=== PATIENT | male | born 1960 | race Caucasian/White ===

== ENCOUNTER 2020-02-26 07:30 | Inpatient (IN) | payer BC ==
[2020-02-26] MEDS ORDERED: Acetaminophen 500 MG Tab PO ONE (08:05)
[2020-02-26] MEDS ORDERED: Dextrose 5%-Lactated Ringers 1,000 ML IV SCH (08:30)
[2020-02-26] MEDS ORDERED: ceFAZolin 2 GM in Premix Bag 1 BAG IV ONE (08:50)
[2020-02-26] MEDS ORDERED: Bupivacaine 0.5% 50 ML MDV ONE (09:28)
[2020-02-26] MEDS ORDERED: Meropenem 500 MG SDV ONE ×2 (09:28→11:14)
[2020-02-26] MEDS ORDERED: Lidocaine 1% with EPINEPHrine 1:100,000 50 ML MDV ONE (09:28)
[2020-02-26] MEDS ORDERED: Glycopyrrolate 0.2 MG/ML 5 ML MDV ONE (09:35)
[2020-02-26] MEDS ORDERED: Ondansetron 4 MG/2 ML SDV ONE (09:35)
[2020-02-26] MEDS ORDERED: Neostigmine Methylsulfate 1 MG/ML 5 ML Syringe ONE (09:35)
[2020-02-26] MEDS ORDERED: Rocuronium 50 MG/5 ML Vial ONE ×2 (09:35→12:32)
[2020-02-26] MEDS ORDERED: Succinylcholine 200 MG/10 ML MDV ONE (09:35)
[2020-02-26] MEDS ORDERED: Dexamethasone 4 MG/ML SDV ONE (09:35)
[2020-02-26] MEDS ORDERED: Propofol 200 MG/20 ML SDV ONE ×2 (09:35→13:29)
[2020-02-26] MEDS ORDERED: fentaNYL 250 MCG/5 ML SDV ONE (09:35)
[2020-02-26] MEDS ORDERED: Ketamine 500 MG/5 ML MDV IV SCH (09:45)
[2020-02-26] MEDS ORDERED: Ketamine 50 MG in Sodium Chloride 0.9% 49.5 ML IV SCH (09:45)
--- NOTE | 2020-02-26 10:00 | PCM.HP.2 ---
H&P History of Present Illness - General Date of Service: 02/26/20 Admit Problem/Dx: Recurrent Incisional Hernia with Mesh Source of Information: Patient History Limitations: Reports: No Limitations - History of Present Illness Initial Comments - Free Text/Narative: Mason reports he has had a hernia for about 1 1/2 months and he is requesting to have it surgically repaired. Associated Symptoms: Reports: No Other Symptoms - Related Data Allergies/Adverse Reactions: Allergies Allergy/AdvReac Type Severity Reaction Status Date / Time latex Allergy Chest Pain Verified 02/26/20 08:13 levofloxacin Allergy Other Verified 02/25/20 09:22 methotrexate Allergy Irritabilit Verified 02/26/20 08:13 y Home Medications: Home Meds Albuterol Sulfate [Proair Hfa] 1 - 2 puff IH Q4H PRN 02/25/20 [History] Calcium Citrate 200 mg PO DAILY 02/25/20 [History] Cyanocobalamin (Vitamin B-12) [Vitamin B-12] 1,000 mcg PO DAILY 02/25/20 [History] Fluticasone Propion/Salmeterol [Fluticasone-Salmeterol 250-50] 1 puff IH BID 02/25/20 [History] Multivitamin with Minerals [Multiple Vitamin] 1 tab PO DAILY 02/25/20 [History] Vitamin B Complex [B Complex] 1 tab PO DAILY 02/25/20 [History] lisinopriL [Lisinopril] 10 mg PO DAILY 02/25/20 [History] Past Medical History Cardiovascular History: Reports: Hypertension Respiratory History: Reports: COPD Gastrointestinal History: Reports: None Musculoskeletal History: Reports: Arthritis Endocrine/Metabolic History: Reports: Obesity/BMI 30+ Hematologic History: Reports: Iron Deficiency Dermatologic History: Reports: Psoriasis - Past Surgical History Cardiovascular Surgical History: Reports: None Respiratory Surgical History: Reports: None GI Surgical History: Reports: Bariatric Procedure, Cholecystectomy, Colonoscopy, Hernia, Abdominal Endocrine Surgical History: Reports: None Musculoskeletal Surgical History: Reports: Carpal Tunnel, Shoulder Surgery Social & Family History - Family History Family Medical History: Noncontributory - Tobacco Use Smoking Status *Q: Former Smoker Used Tobacco, but Quit: Yes Month/Year Tobacco Last Used: 2009 - Caffeine Use Caffeine Use: Reports: Coffee - Alcohol Use Days Per Week of Alcohol Use: 2 Number of Drinks Per Day: 6 Total Drinks Per Week: 12 Date of Last Drink: 02/24/20 - Recreational Drug Use Recreational Drug Use: No H&P Review of Systems - Review of Systems: Review Of Systems: See Below General: Reports: No Symptoms, Other (wears corrective lens for near and far sightedness) HEENT: Reports: No Symptoms Pulmonary: Reports: Shortness of Breath, Wheezing (COPD), Other (Asthma Sleep Apnea) Cardiovascular: Reports: No Symptoms Gastrointestinal: Reports: No Symptoms Genitourinary: Reports: No Symptoms Musculoskeletal: Reports: No Symptoms Skin: Reports: Other (psoriasis outbreak on right shoulder and left leg ) Psychiatric: Reports: No Symptoms Neurological: Reports: No Symptoms Hematologic/Lymphatic: Reports: Anemia Exam - Exam Exam: See Below - Vital Signs Vital Signs: Last Vital Signs Temp 97.9 F 02/26/20 08:06 Pulse 85 02/26/20 08:06 Resp 16 02/26/20 08:06 BP 145/84 H 02/26/20 08:06 Pulse Ox 100 02/26/20 08:06 Weight: 225 lb - Exam Quality Assessment: DVT Prophylaxis General: Alert, Oriented, Cooperative, Mild Distress HEENT: PERRLA, Conjunctiva Clear Neck: Supple, Trachea Midline Lungs: Decreased Breath Sounds, Rhonchi, Wheezing Cardiovascular: Regular Rate, Regular Rhythm GI/Abdominal Exam: Other (incisional hernia) (Male) Exam: Deferred Rectal (Males) Exam: Deferred Back Exam: Normal Inspection, Full Range of Motion Extremities: Normal Inspection, Normal Range of Motion, No Pedal Edema Skin: Other (psoriasis rash on right shoulder and left leg ) Neurological: Cranial Nerves Intact, Reflexes Equal Bilateral Neuro Extensive - Mental Status: Alert, Oriented x3, Normal Mood/Affect Neuro Extensive - Motor, Sensory, Reflexes: CN II-XII Intact Psychiatric: Alert, Normal Affect, Normal Mood Sepsis Event Note - Focused Exam Vital Signs: Vital Signs Temp Pulse Resp BP Pulse Ox 02/26/20 08:06 97.9 F 85 16 145/84 H 100 Problem List Initiated/Reviewed/Updated: Yes Orders Last 24hrs: Active Orders 24 hr Category Date Time Status Dextrose 5%-Lactated Ringers 1,000 ml Med 02/26/20 08:30 Active IV ASDIRECTED Ketamine [Ketalar] Med 02/26/20 09:45 Active 34 mg IV ASDIRECTED Ketamine [Ketalar] 50 mg Med 02/26/20 09:45 Active Sodium Chloride 0.9% [Normal Saline] 49.5 ml IV ASDIRECTED Ropivacaine [Naropin 0.5%] 51 ml Med 02/26/20 09:45 Active dexAMETHasone [Dexamethasone] 8 mg EPINEPHrine [Adrenalin] 0.4 mg Sodium Chloride 0.9% [Normal Saline] 26.6 ml NERVRT ASDIRECTED SCD [Sequential Compression Device] [OM.PC] Routine Oth 02/26/20 08:05 Ordered Medication Orders Ropivacaine 51 ml/Dexamethasone 8 mg/Epinephrine HCl 0.4 mg/ Sodium Chloride 26.6 ml 0 ml NERVRT ASDIRECTED BLAKE Dextrose/Lactated Ringer's (Dextrose 5%-Lactated Ringers) 1,000 mls @ 100 mls/hr IV ASDIRECTED [facility] Last Admin: 02/26/20 08:18 Dose: 100 mls/hr Documented by: RODOLFO Ketamine HCl 50 mg/ Sodium (Chloride) 50 mls @ 20.4 mls/hr IV ASDIRECTED [facility] Ketamine HCl (Ketalar) 34 mg IV ASDIRECTED [facility] Assessment/Plan Comment:: Open Revision of Recurrent Incisional Hernia with Mesh. Plan: Cleared for General Anesthesia After preoperative evaluation and discussion of possible risks and complications patient wishes to proceed with surgical procedure. Martine Snell 02/26/2020 - Mortality Measure Prognosis:: Good
[2020-02-26] MEDS ORDERED: Ketorolac 60 MG/2 ML SDV ONE (13:29)
[2020-02-26] MEDS ORDERED: fentaNYL 100 MCG/2 ML SDV ONE (13:33)
[2020-02-26] MEDS ORDERED: diphenhydrAMINE 25 MG Cap PO PRN (13:41)
[2020-02-26] MEDS ORDERED: Ondansetron 4 MG/2 ML SDV IVPUSH PRN ×2 (13:41→16:00)
[2020-02-26] MEDS ORDERED: Naloxone 0.4 MG/ML SDV IVPUSH PRN (13:41)
[2020-02-26] MEDS ORDERED: diphenhydrAMINE 50 MG/ML SDV IVPUSH PRN (13:41)
[2020-02-26] MEDS ORDERED: hydrOXYzine HCL 100 MG/2 ML SDV IM ONE (13:44)
[2020-02-26] MEDS ORDERED: fentaNYL 100 MCG/2 ML SDV IVPUSH ONE (13:45)
[2020-02-26] MEDS: HYDROmorphone/Normal Saline 15 MG/30 ML PCA IV PRN (13:52)
[2020-02-26] MEDS ORDERED: hydrOXYzine HCL 100 MG/2 ML SDV IM PRN (16:00)
[2020-02-26] MEDS ORDERED: Naloxone 0.4 MG/ML SDV IV PRN (16:00)
[2020-02-26] MEDS ORDERED: Albuterol/Ipratropium 3.0-0.5 MG/3 ML Neb Soln INH PRN (16:00)
[2020-02-26] MEDS: MVI, Adult with Vitamin K 10 ML, Chromium/Copper/Mang/Selen/Zn 1 ML in Dextrose 5%-Lact... IV SCH ×3 (16:53)
[2020-02-26] MEDS: Cyclobenzaprine 10 MG Tab PO SCH ×2 (16:54→21:50)
[2020-02-26] MEDS: Acetaminophen 500 MG Tab PO SCH ×2 (16:54→21:48)
[2020-02-26] MEDS: ceFAZolin 2 GM in Premix Bag 1 BAG IV SCH (16:59)
[2020-02-26] MEDS: Albuterol/Ipratropium 3.0-0.5 MG/3 ML Neb Soln INH SCH (21:44)
[2020-02-26] MEDS: Fluticasone-Salmeterol 113-14 MCG Powder Inhalant INH SCH (21:49)
[2020-02-26] MEDS: Celecoxib 200 MG Cap PO SCH (21:49)
[2020-02-26] MEDS: Dextrose 5%-Lactated Ringers 1,000 ML IV SCH (23:41)
[2020-02-27] MEDS: ceFAZolin 2 GM in Premix Bag 1 BAG IV SCH ×3 (02:29→18:02)
[2020-02-27] MEDS: Cyclobenzaprine 10 MG Tab PO SCH ×4 (04:39→21:40)
[2020-02-27] MEDS: Acetaminophen 500 MG Tab PO SCH ×4 (04:39→21:40)
[2020-02-27] MEDS: Dextrose 5%-Lactated Ringers 1,000 ML IV SCH (05:02)
[2020-02-27] MEDS: Albuterol/Ipratropium 3.0-0.5 MG/3 ML Neb Soln INH SCH ×4 (07:50→20:37)
[2020-02-27] MEDS: Fluticasone-Salmeterol 113-14 MCG Powder Inhalant INH SCH ×3 (07:51→20:37)
[2020-02-27] MEDS ORDERED: Dextrose 5%-Lactated Ringers 1,000 ML IV SCH (08:00)
[2020-02-27] MEDS: Celecoxib 200 MG Cap PO SCH ×2 (08:55→20:37)
[2020-02-27] MEDS: Lisinopril 10 MG Tab PO SCH (08:55)
--- NOTE | 2020-02-27 09:23 | PN ---
DATE OF SERVICE: 02/27/2020 SUBJECTIVE: Mason is postoperative day #1. His pain has been controlled with the SHAVING MACHINE OPERATOR. He has had sips of clear liquids. He is up ambulating. He has no other questions or concerns. OBJECTIVE: GENERAL: Mason Ivey is a pleasant 59-year-old male. He is alert and orientated, sitting up in the chair. VITAL SIGNS: TPR at 0700; 96.9, 81, 16. Blood pressure 110/65. HEENT: Negative. NECK: Supple. HEART: Regular rate and rhythm. LUNGS: Decreased breath sounds. Occasional wheezing. His lungs sound about the same as they did preoperatively. ABDOMEN: Dressing dry and intact. Abdominal binder is on. EXTREMITIES: Without peripheral edema. ASSESSMENT: Exploratory laparotomy with lysis of extensive adhesions: 1. Repair of recurrent incarcerated incisional hernia with mesh. 2. Excision of peritoneal nodule. 3. Placement of Vicryl mesh. POSTOPERATIVE DIAGNOSES: 1. Recurrent incarcerated incisional hernia. 2. Large peritoneal implant abdominal wall, 15 cm. 3. Extensive intraabdominal adhesions. Date of surgery: 02/26/2020. Surgeon: Cornel Dyer MD. PLAN: 1. Decrease IV to 100 mL per hour. 2. Discontinue Rodrigues. 3. Colace 100 mg p.o. scheduled b.i.d. 4. Dulcolax 10 mg p.o. b.i.d. scheduled, may discontinue when patient has a bowel movement. 5. The patient will be getting iron IV infusions today, which are previously ordered for ferritin of 9. 6. Continue SHAVING MACHINE OPERATOR for adequate pain control. 7. Encouraged use of incentive spirometer 10 times every hour while awake. 8. We will evaluate p.r.n. or in a.m. Martine Herrera PA-C /[id number]
[2020-02-27] MEDS: Docusate Sodium 100 MG Cap PO SCH ×2 (09:41→20:37)
[2020-02-27] MEDS: Bisacodyl 5 MG Tab PO SCH ×2 (09:41→20:37)
[2020-02-27] MEDS: Sodium Ferric Gluconate Cmplex 250 MG in Sodium Chloride 0.9% 100 ML IV SCH (10:47)
[2020-02-27] MEDS: MVI, Adult with Vitamin K 10 ML, Chromium/Copper/Mang/Selen/Zn 1 ML in Dextrose 5%-Lact... IV SCH ×3 (18:02)
[2020-02-28] MEDS: HYDROmorphone/Normal Saline 15 MG/30 ML PCA IV PRN (03:51)
[2020-02-28] MEDS: Cyclobenzaprine 10 MG Tab PO SCH ×5 (03:52→23:00)
[2020-02-28] MEDS: Acetaminophen 500 MG Tab PO SCH ×5 (03:52→23:01)
[2020-02-28] MEDS: Albuterol/Ipratropium 3.0-0.5 MG/3 ML Neb Soln INH SCH ×4 (07:12→20:52)
[2020-02-28] MEDS: Fluticasone-Salmeterol 113-14 MCG Powder Inhalant INH SCH ×2 (07:21→20:52)
[2020-02-28] MEDS: Celecoxib 200 MG Cap PO SCH ×2 (08:56→20:52)
[2020-02-28] MEDS: Docusate Sodium 100 MG Cap PO SCH ×2 (08:57→20:52)
[2020-02-28] MEDS: Bisacodyl 5 MG Tab PO SCH ×2 (08:57→20:52)
--- NOTE | 2020-02-28 09:23 | PN ---
DATE OF SERVICE: 02/28/2020 SUBJECTIVE: Mason states his pain is controlled. He has been up ambulating. Vital signs stable, afebrile. Oral intake 1280 and urine output 700. REVIEW OF SYSTEMS: Remainder of review of systems negative for any pertinent positives and negatives. OBJECTIVE: GENERAL: Mason Ivey is a 59-year-old male. VITAL SIGNS: TPR at 0703, 95.3, 87, 16, blood pressure 92/52. HEENT: Negative. NECK: Supple. HEART: Regular rate and rhythm. LUNGS: Clear. Much improved. ABDOMEN: Dressing dry and intact. Abdominal binder is on. EXTREMITIES: Without peripheral edema. ASSESSMENT: Exploratory laparotomy with lysis of extensive adhesions. 1. Repair of recurrent incarcerated incisional hernia with mesh. 2. Excision of peritoneal nodule. 3. Placement of Vicryl mesh. POSTOPERATIVE DIAGNOSES: 1. Recurrent incarcerated incisional hernia. 2. Large peritoneal implant, abdominal wall, 15 cm. 3. Extensive intra-abdominal adhesions. Date of surgery: 02/26/2020. Surgeon: Cornel Dyer MD. PLAN: 1. Discontinue ENGINEERING MATHEMATICIAN. Continuous pulse ox. 2. Oxycodone 5 mg every 4 hours p.r.n. pain. 3. Full liquid diet. 4. Advance diet as tolerated. 5. May shower. 6. Continue use of incentive spirometer and ambulation. 7. Plan discharge in a.m. Martine Herrera PA-C /[id number]
[2020-02-28] MEDS: Sodium Ferric Gluconate Cmplex 250 MG in Sodium Chloride 0.9% 100 ML IV SCH (10:06)
[2020-02-28] MEDS: oxyCODONE 5 MG Tab PO PRN ×4 (10:13→23:52)
[2020-02-29] MEDS: Acetaminophen 500 MG Tab PO SCH (03:43)
[2020-02-29] MEDS: Cyclobenzaprine 10 MG Tab PO SCH (03:44)
[2020-02-29] MEDS: oxyCODONE 5 MG Tab PO PRN ×2 (03:44→08:31)
[2020-02-29] MEDS: Albuterol/Ipratropium 3.0-0.5 MG/3 ML Neb Soln INH SCH (07:24)
[2020-02-29] MEDS: Fluticasone-Salmeterol 113-14 MCG Powder Inhalant INH SCH (07:26)
[2020-02-29] MEDS: Celecoxib 200 MG Cap PO SCH (08:18)
[2020-02-29] MEDS: Lisinopril 10 MG Tab PO SCH (08:18)
[2020-02-29] MEDS: Docusate Sodium 100 MG Cap PO SCH (08:38)
[2020-02-29] MEDS: Bisacodyl 5 MG Tab PO SCH (08:38)
--- NOTE | 2020-02-29 19:15 | DISCH ---
ADMISSION DIAGNOSES: 1. Large recurrent incarcerated incisional hernia. 2. Status post Manuel-en-Y gastric bypass surgery. 3. Unspecified surgical malabsorption. 4. B12 deficiency. 5. Hypertension. 6. Chronic obstructive pulmonary disease. 7. Iron deficiency anemia. 8. Psoriasis. DISCHARGE DIAGNOSES: Exploratory laparotomy with lysis of extensive adhesions. 1. Repair of recurrent incarcerated incisional hernia with mesh. 2. Excision of peritoneal nodule. 3. Placement of Vicryl mesh. POSTOPERATIVE DIAGNOSES: 1. Recurrent incarcerated incisional hernia. 2. Large peritoneal implant, abdominal wall, 15 cm. 3. Extensive intra-abdominal adhesions. Date of surgery: 02/26/2020. Surgeon: Cornel Dyer MD. HISTORY: Mason Ivey is a 59-year-old male who has had a large incarcerated incisional hernia, and after preoperative evaluation and discussion of possible risks and possible complications, he wished to proceed with surgical procedure. HOSPITAL COURSE: Mason had his surgery on 02/26/2020. He had no operative complications. On postoperative day 1, his IV was decreased to 100 mL per hour. Rodrigues was discontinued. He received an iron infusion, his first of 2 iron infusions for a ferritin of 9 and he was started on bowel stimulation. On postoperative day 2, he was changed to oral pain medication. He had 2 bowel movements and diet was advanced as tolerated from a full liquid to regular. He tolerated that well. His activity was good. Pain controlled. Vital signs stable and he was able to be discharged to home on 02/29/2020. PHYSICAL EXAMINATION: GENERAL: Mason Ivey is a pleasant 59-year-old male. He is alert and orientated. VITAL SIGNS: Height is 5 feet 8.11 inches. Weight is 224 pounds. TPR at 0816 is 97, 98, 18. Blood pressure 142/68. HEENT: Negative. NECK: Supple. HEART: Regular rate and rhythm. LUNGS: Clear. ABDOMEN: Dressings dry and intact. Aquacel dressing is on. EXTREMITIES: Without peripheral edema. DISPOSITION: Discharged to home. CONDITION: Stable and improving. FOLLOWUP APPOINTMENT: With Martine Herrera PA-C on 03/07/2020 at 10:15 a.m. HOME MEDICATIONS: 1. Celebrex 200 mg p.o. b.i.d., #28. 2. Oxycodone 5 mg every 4 hours p.r.n. pain, #42. 3. Tylenol 1000 mg every 6 hours p.r.n. pain. To resume home medications as he took prior to admission to the hospital. DIET: Usual diet as tolerated. Drink 8 to 10 glasses of water a day. ACTIVITY: No lifting greater than 10 pounds for 6 weeks. Driving: Do not drive for 1 week and while on pain medication. Shower/bathing: May shower. Wound incision care: Keep site clean and dry. Wear abdominal binder for 6 weeks and keep the pressure dressing over hernia site for 2 weeks. Take off Aquacel dressing in 3 days on 03/03/2020. Notify provider if any fever, increased pain, swelling, redness, drainage, nausea, or vomiting. SPECIAL INSTRUCTION: Use incentive spirometer 10 times every hour while awake for 1 week.
--- NOTE | 2020-03-10 08:55 | OR ---
DATE OF PROCEDURE: 02/26/2020 SURGEON: Cornel Dyer MD PREOPERATIVE DIAGNOSIS: Recurrent incisional hernia. POSTOPERATIVE DIAGNOSES: 1. Recurrent incarcerated incisional hernia. 2. Large peritoneal implant underlying abdominal wall peritoneum (15 cm). 3. Extensive intraabdominal adhesions. OPERATIVE PROCEDURES: Exploratory laparotomy with lysis of extensive adhesions: 1. Repair of recurrent incarcerated incisional hernia with mesh (68430, 13670). 2. Excision of peritoneal implant underlying abdominal wall (77869). 3. Placement of Vicryl mesh to limit recurrent adhesion formation between pelvic and abdominal wall, the abdominal wall mesh, and underlying viscera (35779). ANESTHESIA: General. WEB APPLICATIONS ARCHITECT: Martine Herrera PA-C INDICATIONS FOR PROCEDURE: This is a 59-year-old male presenting with a quite large recurrent incisional hernia. The plan is to proceed with open repair of this with mesh. Potential risks of the procedure including bleeding, infection, injury to underlying viscera, or possibility of the hernia recurring or the mesh becoming infected were all reviewed, and the patient wishes to proceed. DETAILS OF PROCEDURE: The patient was taken to the operating room, and after general endotracheal anesthesia was induced, a Rodrigues catheter was inserted, and the abdomen prepped and draped. Previous upper midline incision from the umbilicus upward was then made and carried down through the skin and subcutaneous tissue. The hernia sac was then encountered, and this was then dissected down circumferentially to the level of fascia. Hernia sac was then opened and was noted to contain some incarcerated omentum and transverse colon. This was dissected free from the hernia sac and replaced back into the peritoneal cavity. The hernia sac was then excised flush with the fascial edge and sent as a surgical specimen. Inspection revealed some underlying adhesions. There was a quite elongated, thickened, an almost night crawler shaped peritoneal implant, measuring 15 cm, underlying the abdominal wall to the right of the midline. This was of uncertain nature, and this was excised and sent for histologic evaluation. At this point, some additional adhesions were cleared, such that we would be able to apply the mesh adequately against the abdominal wall. With this quite large hernia, Ventrio ST mesh measuring 27.4 x 34.9 cm was selected at 5 cm intervals around its circumference. 2-0 Vicryl sutures were placed on the polypropylene side of the mesh, and at the appropriate levels of the abdominal wall, small stab wounds were placed to allow the sutures to be pulled up in position and mesh well away from the fascial edges. The mesh was soaked in an antibiotic-containing saline solution, and then the left-sided sutures were then pulled up, and the mesh pulled up into the abdomen to that extent. The patient was felt to be high risk for significant adhesion formation between the pelvic and abdominal wall, including the area of the mesh placement and the underlying viscera. Given this, Vicryl mesh was placed getting down the lower pelvis up against the abdominal wall, including the area of the mesh. This was 12-inch square Vicryl mesh. At that point, the remaining sutures were then pulled up, thus fixing the mesh well away from the fascial edges. Of note, the tendency to recur in this case would appear to be primarily in lateral direction, and the long axis of the mesh was placed in a transverse orientation. Once all the sutures were pulled up, they were tied, and the mesh was then further secured circumferentially to the abdominal wall with titanium tacking screws. These were placed in the underlying shelf of the mesh so as not to be exposed to the underlying viscera. At that point, the midline fascia was approximated with #2 Vicryl stitch, subcutaneous tissue with layers of 3-0 and 4-0 Vicryl stitch deep, and ben for the skin. Prior to closure, bilateral transversus abdominis plane blocks were placed, and the incision was anesthetized with 0.5% Marcaine. The patient was taken to the recovery room in satisfactory condition. Physician facilities maintenance assistant, Martine Herrera PA-C, played an essential role in assisting in this case helping to position the patient, retract structures, as needed as well as suturing and cutting sutures when indicated. Her presence improved patient safety and decreased operative time. Cornel Dyer MD /[id number]
== END 2020-02-29 09:10 | disposition home or self-care (01) | DRG 227 ==
LOC: JP.SDSSCHI 07:30 → JP.SDS 07:30 → EDSTATUS 08:15 → JP.MS 13:45
PROVIDERS: ADMIT Surgery; ATTEND Surgery
PROC: 0WUF0JZ Supplement Abdominal Wall with Synthetic Substitute, Open Approach (ICD-10-PCS; principal; 2020-02-26)
PROC: 3E0M05Z Introduction of Adhesion Barrier into Peritoneal Cavity, Open Approach (ICD-10-PCS; 2020-02-26)
PROC: 0WCG0ZZ Extirpation of Matter from Peritoneal Cavity, Open Approach (ICD-10-PCS; 2020-02-26)
DX: K43.0 Incisional hernia with obstruction, without gangrene (principal); K66.0 Peritoneal adhesions (postprocedural) (postinfection); K91.2 Postsurgical malabsorption, not elsewhere classified; I10 Essential (primary) hypertension; J44.9 Chronic obstructive pulmonary disease, unspecified; D50.9 Iron deficiency anemia, unspecified; L40.9 Psoriasis, unspecified; E66.9 Obesity, unspecified; E53.8 Deficiency of other specified B group vitamins; Z88.1 Allergy status to other antibiotic agents; Z91.040 Latex allergy status; Z88.8 Allergy status to other drugs, medicaments and biological substances; Z79.899 Other long term (current) drug therapy; Z87.891 Personal history of nicotine dependence
CPT/HCPCS: 88302; 88305; 88312; 94640; 94762; A9270-GY; C1713; C1781; J0171; J0330; J0690; J1100; J1170; J1885; J2020; J2185; J2405; J2704; J2710; J2795; J2916; J3010; J3410; J3490; J7050; J7121; J7620-GY

== ENCOUNTER 2020-03-24 09:40 | Inpatient (IN) | payer BC ==
[2020-03-24] MEDS ORDERED: Acetaminophen 650 MG Supp RECTAL PRN (10:10)
[2020-03-24] MEDS ORDERED: Acetaminophen 325 MG Tab PO PRN (10:10)
[2020-03-24] MEDS ORDERED: Albuterol 8 GM Inhaler INH PRN (10:15)
[2020-03-24] MEDS: Dextrose 5%-Lactated Ringers 1,000 ML IV SCH ×2 (10:15→19:10)
[2020-03-24] MEDS: Pantoprazole 40 MG Vial IV SCH ×2 (11:08→21:44)
[2020-03-24] MEDS: Celecoxib 200 MG Cap PO SCH ×2 (11:08→21:42)
[2020-03-24] MEDS: Ampicillin/Sulbactam Na 3 GM in Sodium Chloride 0.9% 100 ML IV SCH ×3 (11:08→21:44)
[2020-03-24] MEDS: Formoterol/Mometasone 200-5 MCG 8.8 GM Inhaler IH SCH ×2 (11:09→21:42)
--- NOTE | 2020-03-24 15:48 | HP ---
HISTORY OF PRESENT ILLNESS: Varghese is a 59-year-old male who presented to [facility] for followup. He states that he went to [facility] 03/14/2020 for swelling and redness and his incision. He at that time had no pain or fever. The next day 03/15/2020, he went to the emergency room with nausea, but no vomiting, decreased appetite, and he states his temperature was 104. He had a CT of his abdomen for that area that has redness and it did reveal findings concerning for development of an abscess involving the anterior wall, predominantly involving subcutaneous tissues anterior to postoperative changes. The area was prepped with alcohol and needle localization was done on 03/16/2020. He saw Uche Schultz and the wound was probed about 10 cm. He had a moderate amount of mildly cloudy fluid removed. He was placed on Augmentin twice a day and he followed up today on 03/24/2020. Varghese presents stating that he is not feeling well. He is running a low-grade temp. Incision is open. He has some decreased appetite. Fluids, he can drink between 40 and 50 ounces daily. He continues with Augmentin. Incision has been open, and he has been changing, the dressing 1 to 2 times a day. Varghese had an exploratory laparotomy with lysis of extensive adhesion, repair of recurrent incarcerated incisional hernia with mesh, excision of peritoneal nodule, placement of Vicryl mesh on 02/26/2020. Surgeon was Cornel Dyer MD. Pritchett were removed on 03/07/2020. PAST MEDICAL HISTORY: Hypertension, sleep apnea, asthma, psoriasis, arthritis, simple chronic bronchitis, status post Manuel-en-Y gastric bypass surgery, unspecified surgical malabsorption, and B12 deficiency. CURRENT MEDICATIONS: Augmentin 875 mg b.i.d.; Celebrex 200 mg 1 capsule twice daily immediately postop, he has a few days left; Prilosec 40 mg daily; Advair 250/50 mcg 1 puff into lungs twice a day; ProAir inhaler 1 to 2 puffs into lungs every 4 hours p.r.n. wheezing; shortness of breath; lisinopril 10 mg once daily; vitamin B12, 1000 mcg sublingual daily; calcium citrate 1 tablet twice daily; multivitamin 1 tablet twice daily; and B complex 1 daily. ALLERGIES: LATEX, LEVOTHYROXINE, AND METHOTREXATE. SOCIAL HISTORY: He is , employed, [employer]. FAMILY HISTORY: Noncontributory. PAST SURGICAL HISTORY: Manuel-en-Y gastric bypass surgery in 2005, the above surgery on 02/26/2020, upper endoscopy on 11/04/2017, and colonoscopy in 2007. REVIEW OF SYSTEMS: GENERAL: Has been running a low-grade temperature. SKIN: Negative. HEENT: No headache, ear pain, blurred or double vision. No nasal congestion. CARDIOVASCULAR: No chest pain, shortness of breath, fast or irregular heart beat. RESPIRATORY: No cough. ENDOCRINE: Negative. LYMPHATIC SYSTEM. No lymph node tenderness or swelling. GI: No dysphagia,. Has incisional pain where the incision is open. Occasional nausea, but no vomiting. Bowel movements have been normal. : Negative. MUSCULOSKELETAL: No joint pain or swelling. NEUROLOGIC: No history of focal neurological symptoms or loss of coordination. PSYCHIATRIC: Negative for anxiety, depression, or panic attacks. Remainder of review of systems negative for any pertinent positives and negatives. OBJECTIVE: GENERAL: Varghese Ivey is a pleasant 59-year-old male. He is alert, orientated, looks like he does not feel well. Weight is 216 pounds. BMI 32.8 92. VITAL SIGNS: TPR 98, 96, 16. Blood pressure 132/76. HEENT: Negative. NECK: Supple. HEART: Regular rate and rhythm. LUNGS: Reveal decreased breath sounds bilaterally. Occasional wheezing. ABDOMEN: Incision is open. Mesh is exposed. Tissue is not viable. Dr. Dyer was available to examine the patient. EXTREMITIES: Without peripheral edema. NEUROLOGIC: Cranial nerves 2 through 12 intact. PSYCHIATRIC: Mood and affect appropriate. ASSESSMENT: 1. Wound dehiscence with exposure of mesh. 2. Status post exploratory laparotomy, lysis of extensive adhesions, repair of recurrent incarcerated incisional hernia with mesh, excision of peritoneal nodule, placement of Vicryl mesh. Date of surgery 02/26/2020. Surgeon, Cornel Dyer MD. 3. Postoperative anterior wall fluid collection, 03/16/2020. Surgeon, Uche Schultz MD. 4. Hypertension. 5. Sleep apnea. 6. Psoriatic arthritis. 7. Status post Manuel-en-Y gastric bypass surgery. 8. Unspecified surgical malabsorption. 9. B12 deficiency. PLAN: 1. Admit to [facility] for wound dehiscence with exposure of mesh. Code, full. Diet, step 4 gastric bypass diet. Vital signs every 4 hours. IV hydration D5 LR at 125 mL/hour. Labs; check CBC, CMP, mag, and phos now and recheck CBC, CMP, mag, phos in a.m. 2. SCDs. 3. Protonix 40 mg IV every 12 hours scheduled. 4. Tylenol 1000 mg every 8 hours p.r.n. pain, discontinue Tylenol 650. 5. Change dressing 3 times a day. 6. Unasyn 3 g IV q.6 hours scheduled. 7. Lisinopril 10 mg p.o. daily. 8. Albuterol inhaler 1 to 2 puffs every 4 hours p.r.n. wheezing. 9. Advair 250/50 mcg 1 puff inhalation b.i.d. 10.Intake and output. 11.Schedule and have consent signed for exploratory laparotomy with wound debridement and removal of mesh, general anesthesia, TAP block, ketamine bolus and drip. Case to follow Cornel Dyer MD. n.p.o. after midnight and regular diet. We will evaluate p.r.n. or in a.m. The patient admitted as inpatient, plan to stay 3 nights and approximately 4 days. Martine Herrera PA-C /[id number]
[2020-03-25] MEDS: Dextrose 5%-Lactated Ringers 1,000 ML IV SCH ×2 (03:23→12:06)
[2020-03-25] MEDS: Ampicillin/Sulbactam Na 3 GM in Sodium Chloride 0.9% 100 ML IV SCH ×4 (03:25→21:22)
[2020-03-25] MEDS ORDERED: Meropenem 500 MG SDV ONE ×2 (06:47→17:54)
[2020-03-25] MEDS ORDERED: Bupivacaine 0.5% 50 ML MDV ONE (06:47)
[2020-03-25] MEDS ORDERED: Lidocaine 1% with EPINEPHrine 1:100,000 50 ML MDV ONE (06:47)
[2020-03-25] MEDS: Formoterol/Mometasone 200-5 MCG 8.8 GM Inhaler IH SCH ×2 (07:29→21:18)
[2020-03-25] MEDS: Lisinopril 10 MG Tab PO SCH (08:20)
[2020-03-25] MEDS: Celecoxib 200 MG Cap PO SCH ×2 (08:20→21:19)
[2020-03-25] MEDS: Pantoprazole 40 MG Vial IV SCH ×2 (10:12→21:19)
[2020-03-25] MEDS ORDERED: Ketamine 500 MG/5 ML MDV IV SCH (14:30)
[2020-03-25] MEDS ORDERED: Ketamine 50 MG in Sodium Chloride 0.9% 49.5 ML IV SCH (14:30)
[2020-03-25] MEDS ORDERED: Propofol 200 MG/20 ML SDV ONE (14:32)
[2020-03-25] MEDS ORDERED: Neostigmine Methylsulfate 1 MG/ML 5 ML Syringe ONE (14:32)
[2020-03-25] MEDS ORDERED: Glycopyrrolate 0.2 MG/ML 5 ML MDV ONE (14:32)
[2020-03-25] MEDS ORDERED: Succinylcholine 200 MG/10 ML MDV ONE (14:32)
[2020-03-25] MEDS ORDERED: Ondansetron 4 MG/2 ML SDV ONE (14:32)
[2020-03-25] MEDS ORDERED: Dexamethasone 4 MG/ML SDV ONE (14:32)
[2020-03-25] MEDS ORDERED: Albuterol/Ipratropium 3.0-0.5 MG/3 ML Neb Soln NEB ONE (16:30)
[2020-03-25] MEDS ORDERED: Rocuronium 50 MG/5 ML Vial IV ONE ×2 (16:45)
[2020-03-25] MEDS ORDERED: fentaNYL 250 MCG/5 ML SDV ONE ×2 (17:07→17:35)
[2020-03-25] MEDS ORDERED: Lactated Ringers 1,000 ML ONE (17:35)
[2020-03-25] MEDS ORDERED: HYDROmorphone/Normal Saline 15 MG/30 ML PCA IV ONE (18:14)
[2020-03-25] MEDS ORDERED: HYDROmorphone/Normal Saline 15 MG/30 ML PCA IV PRN (18:46)
[2020-03-25] MEDS ORDERED: Naloxone 0.4 MG/ML SDV IV PRN (19:00)
[2020-03-25] MEDS ORDERED: Labetalol 100 MG/20 ML MDV IV ONE (19:14)
[2020-03-25] MEDS ORDERED: Labetalol 20 MG/4 ML Syringe ONE (19:28)
[2020-03-25] MEDS ORDERED: Cyclobenzaprine 10 MG Tab PO PRN (20:08)
[2020-03-25] MEDS ORDERED: Labetalol 20 MG/4 ML Syringe IVPUSH PRN (20:09)
[2020-03-26] MEDS: Ampicillin/Sulbactam Na 3 GM in Sodium Chloride 0.9% 100 ML IV SCH ×4 (03:35→22:11)
[2020-03-26] MEDS: Dextrose 5%-Lactated Ringers 1,000 ML IV SCH ×2 (03:37→14:33)
[2020-03-26] MEDS: Formoterol/Mometasone 200-5 MCG 8.8 GM Inhaler IH SCH ×2 (07:25→21:20)
[2020-03-26] MEDS: Celecoxib 200 MG Cap PO SCH ×2 (08:15→21:20)
[2020-03-26] MEDS: Lisinopril 10 MG Tab PO SCH (08:16)
[2020-03-26] MEDS: Pantoprazole 40 MG Vial IV SCH ×2 (12:27→21:22)
--- NOTE | 2020-03-26 16:29 | PN ---
DATE OF SERVICE: 03/26/2020 The patient has been afebrile with stable vital signs. Overnight, no major problems have been noted. Urine output has been satisfactory. Pain control appeared to be fairly good. We will advance and this morning. Otherwise, tomorrow, leave the Rodrigues catheter until tomorrow and step 3 diet today and n.p.o. after midnight for the delayed primary closure that will be tomorrow. Cornel Dyer MD /[id number]
[2020-03-27] MEDS: Dextrose 5%-Lactated Ringers 1,000 ML IV SCH ×3 (02:41→21:08)
[2020-03-27] MEDS: Ampicillin/Sulbactam Na 3 GM in Sodium Chloride 0.9% 100 ML IV SCH ×4 (04:12→21:00)
[2020-03-27] MEDS ORDERED: Lidocaine 1% with EPINEPHrine 1:100,000 50 ML MDV ONE (06:46)
[2020-03-27] MEDS ORDERED: Meropenem 500 MG SDV ONE (06:46)
[2020-03-27] MEDS ORDERED: Bupivacaine 0.5% 50 ML MDV ONE (06:46)
[2020-03-27] MEDS: Formoterol/Mometasone 200-5 MCG 8.8 GM Inhaler IH SCH ×2 (07:53→21:01)
[2020-03-27] MEDS ORDERED: Propofol 200 MG/20 ML SDV ONE (08:29)
[2020-03-27] MEDS: Lisinopril 10 MG Tab PO SCH (08:39)
[2020-03-27] MEDS: Celecoxib 200 MG Cap PO SCH ×2 (08:39→21:01)
[2020-03-27] MEDS ORDERED: Potassium Chloride 10 MEQ Cap.ER PO ONE (09:00)
--- NOTE | 2020-03-27 09:13 | PN ---
DATE OF SERVICE: 03/25/2020 The patient has been clinically stable overnight, and the patient is awaiting exploration of the abdomen today with debridement of the wound, removal of the mesh, and closure of the fascia. We will probably put some Vicryl mesh in as well, so that if he were to develop a dehiscence that would minimize chances of problems with an evisceration. Potential risks of the procedure were reviewed with the patient. On his lab work, the albumin was quite low. We will give him some albumin this morning preoperatively. Cornel Dyer MD /[id number]
[2020-03-27] MEDS: Pantoprazole 40 MG Vial IV SCH ×2 (10:03→21:01)
[2020-03-27] MEDS: Magnesium Sulfate/Water 2 GM/50 ML BAG IV SCH ×3 (10:20→21:00)
[2020-03-27] MEDS ORDERED: Lisinopril 10 MG Tab PO ONE (14:05)
[2020-03-27] MEDS ORDERED: Furosemide 20 MG/2 ML VIAL IVPUSH ONE (14:06)
[2020-03-28] MEDS: Magnesium Sulfate/Water 2 GM/50 ML BAG IV SCH ×4 (03:24→20:59)
[2020-03-28] MEDS: Ampicillin/Sulbactam Na 3 GM in Sodium Chloride 0.9% 100 ML IV SCH (03:24)
[2020-03-28] MEDS: Formoterol/Mometasone 200-5 MCG 8.8 GM Inhaler IH SCH ×2 (07:21→21:00)
[2020-03-28] MEDS ORDERED: Albuterol/Ipratropium 3.0-0.5 MG/3 ML Neb Soln NEB PRN (08:27)
[2020-03-28] MEDS ORDERED: Albuterol/Ipratropium 3.0-0.5 MG/3 ML Neb Soln NEB SCH (08:30)
[2020-03-28] MEDS: Celecoxib 200 MG Cap PO SCH ×2 (08:55→20:59)
[2020-03-28] MEDS: Lisinopril 10 MG Tab PO SCH (08:55)
[2020-03-28] MEDS: HYDROmorphone 2 MG Tab PO PRN (08:56)
[2020-03-28] MEDS: Docusate Sodium 100 MG Cap PO SCH ×2 (09:05→20:59)
[2020-03-28] MEDS: Pantoprazole 40 MG Tab.CR PO SCH ×2 (09:05→16:10)
[2020-03-28] MEDS: Ciprofloxacin in D5W 400 MG in Premix Bag 1 BAG IV SCH ×4 (09:06→20:58)
[2020-03-28] MEDS: Bisacodyl 5 MG Tab PO SCH ×2 (09:06→20:59)
[2020-03-28] MEDS: Doxycycline 100 MG in Sodium Chloride 0.9% 100 ML IV SCH ×2 (10:41→22:36)
[2020-03-28] MEDS: Dextrose 5%-Lactated Ringers 1,000 ML IV SCH (10:41)
--- NOTE | 2020-03-28 15:21 | PN ---
DATE OF SERVICE: 03/28/2020 SUBJECTIVE: Mason reports his pain is controlled. Vital signs have been stable. He has been up ambulating. His abdominal fluid grew out Enterobacter dissolvens and Staphylococcus aureus. Sensitivities are completed. REVIEW OF SYSTEMS: Remainder of review of systems negative for any pertinent positives or negatives. OBJECTIVE: GENERAL: Mason is a pleasant 59-year-old male. He is alert and orientated. VITAL SIGNS: TPR at 0200 of 97.5, 75, and 16. Blood pressure 138/91. HEENT: Negative. NECK: Supple. HEART: Regular rate and rhythm. LUNGS: Reveal coarse rhonchi and wheezing is noted. Fair air exchange in bases. ABDOMEN: Dressing dry and intact. Abdominal binder is on. EXTREMITIES: Without peripheral edema. ASSESSMENT: Exploratory laparotomy with: 1. Removal of intraperitoneal mesh. 2. Drainage of infected contaminated intraperitoneal abdominal fluid. 3. Debridement of abdominal wall. 4. Closure of fascial dehiscence with assistance of retention sutures. POSTOPERATIVE DIAGNOSES: 1. Fascial dehiscence with exposed and contaminated intraperitoneal mesh. 2. Infected, contaminated intraperitoneal fluid collection between mesh and abdominal wall. 3. Focal abdominal wall necrosis. 4. Date of procedure 03/25/2020. Surgeon: Cornel Dyer MD. Fluid drainage with Enterobacter dissolvens and Staphylococcus aureus. PLAN: 1. Discontinue RECREATION CENTER DIRECTOR. 2. Continue pulse oximetry. 3. Saline lock IV. 4. Dilaudid 2 mg 1 to 2 every 4 hours p.r.n. pain. 5. Colace 100 mg b.i.d. p.o. 6. Dulcolax 10 mg tablets b.i.d. scheduled, may discontinue when patient has bowel movement. 7. Cipro 400 mg IV every 12 hours. 8. Doxycycline 100 mg IV every [address] Dyer when Ms. Ivey is here to teach her how to pack and change open abdominal incision. 10.DuoNeb every 4 hours and p.r.n. wheezing. 11.We will evaluate p.r.n. or in a.m. Martine Herrera PA-C /[id number]
[2020-03-28] MEDS: Acetaminophen 500 MG Tab PO PRN (17:58)
--- NOTE | 2020-03-28 18:27 | OR ---
DATE OF PROCEDURE: 03/27/2020 SURGEON: Cornel Dyer MD PREOPERATIVE DIAGNOSIS: Open abdominal incision. POSTOPERATIVE DIAGNOSIS: Open abdominal incision. OPERATIVE PROCEDURE: Dressing change under anesthesia. ANESTHESIA: IV sedation. INDICATION FOR PROCEDURE: The patient is out 36 hours status post open laparotomy and drainage of a contaminated intraabdominal mesh and removal of that. The skin and subcutaneous tissues were packed open with retention sutures being placed due to fascial dehiscence that had occurred and will be undergoing dressing change placed between the retention sutures. A TAP block will also be placed. Potential risks were reviewed with primary aspiration of gastric contents and the patient wishes to proceed. DETAILS OF PROCEDURE: The patient was taken to the operating room and placed in a semi- sitting position. IV sedation was administered, after which the operative dressing was taken down and the wound inspected and found to be fairly clean. Bilateral transversus abdominis plane blocks were then placed with ultrasound guidance and the wound irrigated with meropenem-containing saline solution. Iodoform gauze was then placed between the retention sutures and into the subcutaneous space and ABD applied. The patient was taken to the recovery room in satisfactory condition. Cornel Dyer MD /[id number]
[2020-03-29] MEDS: Acetaminophen 500 MG Tab PO PRN (01:36)
[2020-03-29] MEDS: Magnesium Sulfate/Water 2 GM/50 ML BAG IV SCH ×4 (03:30→21:48)
[2020-03-29] MEDS: HYDROmorphone 2 MG Tab PO PRN ×3 (05:29→19:26)
[2020-03-29] MEDS: Formoterol/Mometasone 200-5 MCG 8.8 GM Inhaler IH SCH ×2 (07:00→20:21)
[2020-03-29] MEDS: Pantoprazole 40 MG Tab.CR PO SCH ×2 (07:57→16:47)
[2020-03-29] MEDS: Lisinopril 10 MG Tab PO SCH (08:00)
[2020-03-29] MEDS: Celecoxib 200 MG Cap PO SCH ×2 (08:02→20:21)
[2020-03-29] MEDS: Bisacodyl 5 MG Tab PO SCH ×2 (08:02→20:21)
[2020-03-29] MEDS: Docusate Sodium 100 MG Cap PO SCH ×2 (08:02→20:21)
[2020-03-29] MEDS: Ciprofloxacin in D5W 400 MG in Premix Bag 1 BAG IV SCH ×4 (08:47→20:21)
[2020-03-29] MEDS: Acetaminophen 500 MG Tab PO SCH ×3 (08:47→20:21)
[2020-03-29] MEDS: Doxycycline 100 MG in Sodium Chloride 0.9% 100 ML IV SCH ×2 (10:10→21:48)
--- NOTE | 2020-03-29 11:01 | PN ---
DATE OF SERVICE: 03/27/2020 The patient has been afebrile with stable vital signs. He appeared to be feeling overall fairly well. Nothing new is going on with the cultures. We will continue the present antibiotics of Unasyn and Azactam. Otherwise, we will do dressing changes under anesthesia this morning and continue to maximize activity and work with pulmonary toilet. CAROLYN drains are still putting out some bloody type drainage and we will leave those in place for now. Labs showed no significant problems. Potassium is marginally low and we will give him some oral potassium later today. Otherwise over the next 2 to 3 days we will teach his how to do the dressing changes between the retention sutures. Cornel Dyer MD /[id number]
--- NOTE | 2020-03-29 14:56 | PN ---
DATE OF SERVICE: 03/29/2020 The patient has been afebrile with stable vital signs. Did tolerate the IV Cipro yesterday, so there has not been any allergy issue in that regard. Appearing to slowing down and becoming fairly clear. We will continue with the IV antibiotics for 1 more day and teach the in terms of dressing changes. He will likely be ready for discharge home tomorrow morning. We will send him home on oral Cipro. Cornel Dyer MD /[id number]
[2020-03-30] MEDS: Acetaminophen 500 MG Tab PO SCH ×2 (03:00→07:28)
[2020-03-30] MEDS: Magnesium Sulfate/Water 2 GM/50 ML BAG IV SCH (03:00)
[2020-03-30] MEDS: HYDROmorphone 2 MG Tab PO PRN ×2 (03:02→07:23)
[2020-03-30] MEDS: Formoterol/Mometasone 200-5 MCG 8.8 GM Inhaler IH SCH (07:06)
[2020-03-30] MEDS: Pantoprazole 40 MG Tab.CR PO SCH (07:27)
[2020-03-30] MEDS: Bisacodyl 5 MG Tab PO SCH (08:20)
[2020-03-30] MEDS: Celecoxib 200 MG Cap PO SCH (08:50)
[2020-03-30] MEDS: Docusate Sodium 100 MG Cap PO SCH (08:50)
[2020-03-30] MEDS: Lisinopril 10 MG Tab PO SCH (08:51)
[2020-03-30] MEDS ORDERED: Ciprofloxacin 500 MG Tab PO SCH (09:00)
--- NOTE | 2020-03-30 11:46 | OR ---
DATE OF PROCEDURE: 03/25/2020 SURGEON: Cornel Dyer MD PREOPERATIVE DIAGNOSIS: Fascial dehiscence with exposed and contaminated intraperitoneal mesh. POSTOPERATIVE DIAGNOSES: 1. Fascial dehiscence with exposed and contaminated intraperitoneal mesh. 2. Infected/contaminated intra-abdominal fluid collection between the mesh and the abdominal wall. 3. Focal abdominal wall necrosis. OPERATIVE PROCEDURE: Exploratory laparotomy with: 1. Removal of intraperitoneal mesh (77923). 2. Drainage of contaminated intraperitoneal fluid collection (58320). 3. Debridement of abdominal wall focal fascial necrosis (40935). 4. Closure of fascial dehiscence with assistance of retention sutures (84840). ANESTHESIA: General. INDICATIONS FOR PROCEDURE: This is a 59-year-old male recently status post a repair of a very large incisional hernia with mesh who presented this weekend to [place] and then subsequently to yesterday with an obvious fascial dehiscence and exposure to the underlying mesh. At this point, he does not show signs of overt infection, but the mesh is obviously contaminated and will need to be removed and the fascial dehiscence dealt with both probably by means of additional closure, but with aid of retention sutures. Potential risks of the procedure including bleeding, infection, injury to underlying viscera, possible further abdominal wall hernia formation or dehiscence were all gone over, and the patient wishes to proceed. DETAILS OF PROCEDURE: The patient was taken to the operating room and placed in a supine position. After general endotracheal anesthesia was induced, a Rodrigues catheter was inserted and the abdomen prepped and draped. The remaining intact midline skin and subcutaneous tissue were then divided. The intact fascia above and below the area of dehiscence was not opened further. This then allowed dissection underneath the abdominal wall where there was some adherent mesh. There was thin purulent layer of fluid Gram stain and this showed gram- negative rods consistent with either contamination or infection, but the overall appearance was that of more of a contamination in the inflammatory fluid collection rather than an invasive infection which would also fit the clinical picture. Eventually the edges of the mesh were then freed up circumferentially. The center of the mesh was then opened and from within the patient had developed a quite nice capsule over the underlying small bowel with only the uppermost and lowermost aspect of the area of mesh really not covered by that capsule. This allowed removal of the mesh with minimal manipulation of the small bowel, and upon removal of the mesh, the areas of visible small bowel were inspected and found to be intact with no signs of any deserosalizations. After further drainage of any fluid that had been between the mesh and the abdominal wall, the area was irrigated with a meropenem and Zyvox- containing saline solution. There was some necrosis of the abdominal wall in the midline which involved the skin and subcutaneous tissue and fascia and this was debrided. At this point, obviously no new mesh was going to be placed. Retention sutures were then initially placed and tied, this was a #2 Prolene stitch. Once these were in place, the primary fascial closure was accomplished with a #2 Vicryl stitch. Two Kj-Blackburn drains were placed through the stab wounds one on each side of the abdomen, draped across the area of the closure. Once the fascia was closed, then the retention sutures were tied. Between the retention sutures, the skin and subcutaneous tissue was packed open with Iodoform gauze and the patient taken to the recovery room in satisfactory condition. Prior to closure, the patient had bilateral transversus abdominis plane blocks and was taken to the recovery room in satisfactory condition. Cornel Dyer MD /[id number]
--- NOTE | 2020-03-30 14:13 | DISCH ---
FINAL DIAGNOSES: 1. Fascial dehiscence with exposed contaminated intraperitoneal mesh. 2. Infected/contaminated intraabdominal fluid collection between mesh and abdominal wall. 3. Focal fascial necrosis. 4. History of multiple recurrent incisional hernias. 5. History of asthma. 6. Bariatric surgery status. OPERATIVE PROCEDURES: Exploratory laparotomy with: 1. Removal of intraperitoneal mesh. 2. Drainage of infected/contaminated intraabdominal fluid collection. 3. Debridement of abdominal wall. 4. Closure of fascial dehiscence with the assistance of retention sutures. SUMMARY: This is a 59-year-old, recently status post repair of a very large incisional hernia who presented now 7 days ago in [place] then seen in [place] on Tuesday. He presented with open fascial dehiscence with the skin coming open and the mesh overly exposed. The patient was admitted for hydration, initiation of antibiotics, and thereafter had the mesh removed. The cultures of this collection between the mesh and the abdominal wall grew out Enterobacter, Staph aureus and then a second Staph aureus and a beta strep. These were all sensitive to Cipro and he will be sent home on Cipro 500 mg p.o. b.i.d. x10 days, #20. In overall appearance, this bacterial accumulation is probably a contaminant rather than overt infection given the fact that there were 4 organisms involved. At any rate, the patient had the fascial closure and this was assisted by retention sutures, skin and subcutaneous tissue packed open, and the has been taught how to change the dressings and with packing in the subcutaneous tissue in between the retention sutures. He is tolerating diet, moving his bowels. He will be sent home with Cipro 500 mg p.o. b.i.d. x10 days, Dilaudid 2 mg p.o. q.4 hours p.r.n. pain #30, Celebrex 200 mg p.o. b.i.d. x2 weeks, and then Tylenol 1 g p.o. q.i.d. p.r.n. pain. Otherwise, he can continue his usual medications, follow up with Dr. Dyer in [facility] on 04/09/2020.
== END 2020-03-30 09:50 | disposition home or self-care (01) | DRG 711 ==
LOC: JP.ICU 09:40 → JP.MS 03-27 15:26
PROVIDERS: ADMIT Surgery; ATTEND Surgery
PROC: 0WPF0JZ Removal of Synthetic Substitute from Abdominal Wall, Open Approach (ICD-10-PCS; principal; 2020-03-25)
PROC: 0W9G0ZZ Drainage of Peritoneal Cavity, Open Approach (ICD-10-PCS; 2020-03-25)
PROC: 0JB80ZZ Excision of Abdomen Subcutaneous Tissue and Fascia, Open Approach (ICD-10-PCS; 2020-03-25)
PROC: 0WQF0ZZ Repair Abdominal Wall, Open Approach (ICD-10-PCS; 2020-03-25)
PROC: 2W03X6Z Change Pressure Dressing on Abdominal Wall (ICD-10-PCS; 2020-03-27)
DX: T85.79XA Infection and inflammatory reaction due to other internal prosthetic devices, implants and grafts, initial encounter (principal); T81.30XA Disruption of wound, unspecified, initial encounter; I96 Gangrene, not elsewhere classified; J45.909 Unspecified asthma, uncomplicated; I10 Essential (primary) hypertension; G47.30 Sleep apnea, unspecified; Z20.828 Contact with and (suspected) exposure to other viral communicable diseases; M19.90 Unspecified osteoarthritis, unspecified site; K90.9 Intestinal malabsorption, unspecified; E53.8 Deficiency of other specified B group vitamins; Y83.8 Other surgical procedures as the cause of abnormal reaction of the patient, or of later complication, without mention of misadventure at the time of the procedure; L40.50 Arthropathic psoriasis, unspecified; J41.0 Simple chronic bronchitis; Z98.84 Bariatric surgery status; Z79.899 Other long term (current) drug therapy; Z91.040 Latex allergy status; Z88.8 Allergy status to other drugs, medicaments and biological substances
CPT/HCPCS: 36415; 80053; 83735; 84100; 85027; 87070; 87075; 87077; 87186; 87205; 88300; 88304; 94640; 94762; A9270-GY; C9113; J0171; J0295; J0330; J0744; J1100; J1170; J1940; J2020; J2185; J2405; J2704; J2710; J2795; J3010; J3475; J3490; J7050; J7120; J7121; J7620-GY; P9047; U0002

== ENCOUNTER 2021-05-12 08:24 | Inpatient (IN) | payer BC ==
[~2021-05-12 08:24] MED LIST: Bupivacaine 0.5% 50 ML MDV ONE; Dexamethasone 4 MG/ML SDV ONE; Glycopyrrolate 0.2 MG/ML 5 ML MDV ONE; Lidocaine 1% with EPINEPHrine 1:100,000 50 ML MDV ONE; Meropenem 500 MG SDV ONE; Neostigmine Methylsulfate 1 MG/ML 5 ML Syringe ONE; Ondansetron 4 MG/2 ML SDV ONE; Propofol 200 MG/20 ML SDV ONE; Rocuronium 50 MG/5 ML Vial ONE; fentaNYL 250 MCG/5 ML SDV ONE
[2021-05-12] MEDS ORDERED: Scopolamine 1.5 MG Transdermal Patch TRDERM ONE (08:45)
[2021-05-12] MEDS ORDERED: Celecoxib 200 MG Cap PO ONE (08:45)
[2021-05-12] MEDS ORDERED: Acetaminophen 500 MG Tab PO ONE (08:45)
[2021-05-12] MEDS ORDERED: Dextrose 5%-Lactated Ringers 1,000 ML IV SCH (09:15)
[2021-05-12] MEDS ORDERED: Albuterol/Ipratropium 3.0-0.5 MG/3 ML Neb Soln NEB ONE ×2 (09:30→13:00)
[2021-05-12] MEDS ORDERED: ceFAZolin 2 GM in Premix Bag 1 BAG IV ONE (10:15)
[2021-05-12] MEDS ORDERED: ceFAZolin 2 GM in Sodium Chloride 0.9% 100 ML IV ONE (10:15)
[2021-05-12] MEDS ORDERED: Ropivacaine 44 ML, dexAMETHasone 8 MG, EPINEPHrine 0.4 MG, Sodium Chloride 0.9% 33.6 ML NERVRT SCH ×4 (10:30)
[2021-05-12] MEDS ORDERED: Ketamine 20 MG in Sodium Chloride 0.9% 19.8 ML IV SCH (10:30)
[2021-05-12] MEDS ORDERED: Ketamine 500 MG/5 ML MDV IV SCH (10:30)
[2021-05-12] MEDS ORDERED: Rocuronium 50 MG/5 ML Vial ONE (10:32)
[2021-05-12] MEDS ORDERED: Phenylephrine 1% 10 MG/ML SDV ONE ×2 (10:41→11:15)
[2021-05-12] MEDS ORDERED: fentaNYL 100 MCG/2 ML SDV ONE ×2 (10:56→12:13)
[2021-05-12] MEDS ORDERED: HYDROmorphone/Normal Saline 15 MG/30 ML PCA IV PRN (10:57)
[2021-05-12] MEDS ORDERED: Naloxone 0.4 MG/ML SDV IVPUSH PRN (10:57)
[2021-05-12] MEDS ORDERED: Meropenem 500 MG SDV IRR ONE (11:00)
[2021-05-12] MEDS ORDERED: Sodium Chloride 0.9% 10 ML ONE (11:12)
[2021-05-12] MEDS ORDERED: ePHEDrine 50 MG/ML SDV ONE (11:12)
[2021-05-12] MEDS ORDERED: Lactated Ringers 1,000 ML ONE (11:14)
[2021-05-12] MEDS ORDERED: hydrOXYzine HCL 100 MG/2 ML SDV IM PRN (14:19)
[2021-05-12] MEDS ORDERED: Cyclobenzaprine 10 MG Tab PO PRN (14:21)
[2021-05-12] MEDS ORDERED: Ondansetron 4 MG/2 ML SDV IVPUSH PRN (14:23)
[2021-05-12] MEDS ORDERED: Albuterol/Ipratropium 3.0-0.5 MG/3 ML Neb Soln INH PRN (14:33)
[2021-05-12] MEDS ORDERED: Lactated Ringers 500 ML IV ONE ×2 (14:45→18:15)
[2021-05-12] MEDS: Albuterol/Ipratropium 3.0-0.5 MG/3 ML Neb Soln INH SCH ×2 (14:49→21:14)
[2021-05-12] MEDS: Acetaminophen 500 MG Tab PO SCH ×2 (15:45→21:14)
[2021-05-12] MEDS: ceFAZolin 2 GM in Premix Bag 1 BAG IV SCH ×2 (15:55→23:36)
[2021-05-12] MEDS: Dextrose 5%-Lactated Ringers 1,000 ML IV SCH (17:11)
[2021-05-12] MEDS: ADVAIR DISKUS 250/50 INHALER PO SCH (21:14)
[2021-05-13] MEDS: Dextrose 5%-Lactated Ringers 1,000 ML IV SCH ×3 (00:36→17:19)
[2021-05-13] MEDS: Acetaminophen 500 MG Tab PO SCH ×4 (03:56→21:56)
[2021-05-13] MEDS: ceFAZolin 2 GM in Premix Bag 1 BAG IV SCH (07:08)
[2021-05-13] MEDS: ADVAIR DISKUS 250/50 INHALER PO SCH ×2 (07:18→21:19)
[2021-05-13] MEDS ORDERED: Ondansetron 4 MG Tab.DIS PO PRN (07:18)
[2021-05-13] MEDS: Albuterol/Ipratropium 3.0-0.5 MG/3 ML Neb Soln INH SCH ×4 (07:18→21:18)
[2021-05-13] MEDS ORDERED: Tamsulosin 0.4 MG Cap.ER PO ONE (07:30)
[2021-05-13] MEDS: Vitamin A 10,000 Unit Cap PO SCH (08:26)
[2021-05-13] MEDS: Bisacodyl 5 MG Tab PO SCH ×2 (08:27→20:12)
[2021-05-13] MEDS: Hydrochlorothiazide 12.5 MG Cap PO SCH (08:27)
[2021-05-13] MEDS: Docusate Sodium 100 MG Cap PO SCH ×2 (08:27→20:13)
[2021-05-13] MEDS: Celecoxib 200 MG Cap PO SCH (08:27)
--- NOTE | 2021-05-13 09:49 | PN ---
DATE OF SERVICE: 05/13/2021 SUBJECTIVE: Jakob is postop day #1. Pain is controlled with the PITCH FILLER. He has been up ambulating. Vital signs reveal he has been afebrile, blood pressure has been low at 97/61, 100/62, and it did come up to 114/74 at 7 a.m. He has had 2 lactated Ringer boluses during the night for low urine output. His total intake was 1720 orally, urine output via Rodrigues catheter 590. IV intake 3160. Remainder of review of systems negative for any pertinent positives and negatives. OBJECTIVE: GENERAL: Jakob Ivey is a pleasant 61-year-old male. He is alert and orientated, sitting up in bed. VITAL SIGNS: TPR is 97, 74, 16. Blood pressure 114/74. HEENT: Negative. NECK: Supple. HEART: Regular rate and rhythm. LUNGS: Clear. ABDOMEN: Dressing dry and intact. Abdominal binder is on. EXTREMITIES: Without peripheral edema. NEURO: Intact. ASSESSMENT: Exploratory laparotomy with: 1. Reduction of small bowel volvulus and closure of internal hernia. 2. Repair of recurrent incarcerated incisional hernia and recurrent incarcerated umbilical hernia with mesh. 3. Excision of peritoneal nodule lesion and omentum. 4. Placement of Vicryl mesh. POSTOPERATIVE DIAGNOSES: 1. Recurrent incarcerated incisional hernia and recurrent incarcerated umbilical hernia. 2. Focal small bowel volvulus. 3. Nodular peritoneal implant 6 cm omentum. 4. Extensive intraabdominal adhesions. Date of surgery: 05/12/2021. Surgeon: Cornel Dyer MD. PLAN: 1. Step 3 gastric bypass diet. 2. Discontinue Rodrigues catheter in a.m., 05/14/2021 at 0600. 3. Flomax 0.4 mg b.i.d. 1 day. 4. Hold lisinopril today. 5. Decrease IV to 100 mL/hour. 6. Colace 100 mg p.o. b.i.d. 7. Dulcolax 10 mg p.o. b.i.d. until patient has bowel movement. 8. Continue use of incentive spirometer. 9. We will evaluate p.r.n. or in a.m. Martine Herrera PA-C /[id number]
[2021-05-13] MEDS: Tamsulosin 0.4 MG Cap.ER PO SCH (20:13)
[2021-05-14] MEDS ORDERED: Benzocaine/Cetylpyridinium/Menthol Lozenge MUCMEM PRN (03:01)
[2021-05-14] MEDS: Acetaminophen 500 MG Tab PO SCH ×4 (03:02→21:56)
[2021-05-14] MEDS: Dextrose 5%-Lactated Ringers 1,000 ML IV SCH (03:07)
[2021-05-14] MEDS: Albuterol/Ipratropium 3.0-0.5 MG/3 ML Neb Soln INH SCH ×4 (07:28→21:56)
[2021-05-14] MEDS: ADVAIR DISKUS 250/50 INHALER PO SCH ×2 (07:29→21:55)
--- NOTE | 2021-05-14 07:49 | PN ---
DATE OF SERVICE: 05/14/2021 Kasey is postop day #2. Pain has been controlled with the TERRAZZO FINISHER. Rodrigues catheter was removed at 0500. He has voided and had a bowel movement this a.m. Vital signs have been stable. He has been up ambulating using his incentive spirometer. He has no other concerns or questions this morning. Oral intake 2390 and urine output is 1620. REVIEW OF SYSTEMS: Remainder of review of systems negative for any pertinent positives and negatives. OBJECTIVE: Kasey Ivey is a pleasant 61-year-old male. He is alert and orientated. TPR 96.1, 93, 18, and blood pressure 118/72. HEENT: Negative. NECK: Supple. HEART: Regular rate and rhythm. LUNGS: Clear. ABDOMEN: Dressings dry and intact. Abdominal binder is on. EXTREMITIES: Without peripheral edema. ASSESSMENT: Exploratory laparotomy with: 1. Reduction of small bowel volvulus and closure of internal hernia. 2. Repair of recurrent incarcerated incisional hernia and recurrent incarcerated umbilical hernia with mesh. 3. Excision of peritoneal nodule lesion in omentum. 4. Placement of Vicryl mesh. POSTOPERATIVE DIAGNOSES: 1. Recurrent incarcerated incisional hernia and recurrent incarcerated umbilical hernia. 2. Focal small bowel volvulus. 3. Nodular peritoneal implant 6 cm omentum. 4. Extensive intraabdominal adhesions. Date of surgery: 05/12/2021. Surgeon: Cornel Dyer MD. PLAN: 1. DC TERRAZZO FINISHER and continuous pulse ox. 2. Saline lock IV. 3. Oxycodone 5 mg q.4 hours p.r.n. pain. Continue ambulation and use of incentive spirometer. We will evaluate p.r.n. or in a.m. Martine Herrera PA-C /[id number]
[2021-05-14] MEDS: Vitamin A 10,000 Unit Cap PO SCH (08:23)
[2021-05-14] MEDS: Lisinopril 10 MG Tab PO SCH (08:24)
[2021-05-14] MEDS: Celecoxib 200 MG Cap PO SCH (08:24)
[2021-05-14] MEDS: Hydrochlorothiazide 12.5 MG Cap PO SCH (08:24)
[2021-05-14] MEDS: Docusate Sodium 100 MG Cap PO SCH ×2 (08:25→21:54)
[2021-05-14] MEDS: Bisacodyl 5 MG Tab PO SCH ×2 (08:25→21:54)
[2021-05-14] MEDS: oxyCODONE 5 MG Tab PO PRN ×2 (10:46→18:39)
--- NOTE | 2021-05-14 14:46 | OR ---
DATE OF PROCEDURE: 05/12/2021 SURGEON: Cornel Dyer MD PREOPERATIVE DIAGNOSIS: Recurrent incisional hernia. POSTOPERATIVE DIAGNOSES: 1. Recurrent incarcerated incisional hernia. 2. Recurrent incarcerated umbilical hernia. 3. Focal small bowel volvulus. 4. Nodular peritoneal implant overlying surface of omentum. 5. Extensive intraabdominal adhesions. OPERATIVE PROCEDURE: Exploratory laparotomy with: 1. Reduction of small bowel volvulus and closure of internal hernia (19206). 2. Repair of recurrent incarcerated incisional hernia with mesh (77091, 82447). 3. Repair of recurrent incarcerated umbilical hernia (73953). 4. Excision of nodular peritoneal implant overlying the omentum (13197). 5. Placement of Vicryl mesh to limit postoperative adhesion between pelvic and abdominal wall and underlying viscera (01370). ANESTHESIA: General. SEARCH COORDINATOR: Martine Herrera PA-C INDICATIONS FOR PROCEDURE: This is a 61-year-old male presenting with recurrent incisional hernia located in the upper central abdomen. Plan is to proceed with open repair of this with a mesh technique. Potential risks including bleeding, infection, injury to underlying viscera, problems with it recurring or the mesh becoming infected were all reviewed and the patient wishes to proceed. DETAILS OF PROCEDURE: The patient was taken to the operating room and placed in the supine position. After general endotracheal anesthesia was induced, a Rodrigues catheter was inserted and the abdomen prepped and draped. A vertical midline incision removing some of the overlying redundant skin was then made and carried down through the skin and subcutaneous tissue. The hernia was then opened. There were some adhesions between the omentum, transverse colon, and small bowel within the area of herniation. There was also separate umbilical hernia which contained some incarcerated omentum within it as well. These adhesions were then taken down with a combination of blunt and cautery dissection and some surgical ben. Once these areas were cleared, the peritoneum over the area of 2 herniation was excised. During the course of dissection, a nodular peritoneal implant measuring 6 cm was located within the omentum. This was excised with surgical stapler and sent for histologic evaluation. At this point, the small bowel was viewed and the patient was noted to have a focal small bowel volvulus with prolapse of a portion of the Manuel limb and the plane underneath the mesenteric defect at the level of the jejunojejunostomy. This was reduced and that defect closed with 2-0 silk stitch. The hernia was then measured out and a Ventrio ST hernia patch measuring 22.1 x 27.1 cm was selected. At 5 cm intervals around its circumference on the polypropylene side of the mesh, 2-0 Vicryl sutures were placed and small stab wounds were placed in the abdominal wall where the sutures would be pulled up thus fixing the mesh well away from the fascial defect. The mesh was then soaked in antibiotic containing saline solution and then placed in intraperitoneal location. The superior half of the suture was then placed. Mesh was oriented with the long axis in the vertical midline. Once these sutures were placed and pulled up snugly, Vicryl mesh was then placed underneath the area of the repair and from there down towards the pelvis to prevent adhesion formation. There was some omentum available much less volume may be required to cover the entire area of concern for recurrent adhesion formation. Once this was in place, the remaining sutures were then placed through the abdominal wall and pulled up tied. The mesh was then further circumferentially fixed with titanium tacking screws placed at the underside of the mesh to the abdominal wall. At that point, no further problems were noted. The abdomen was once again irrigated with antibiotic-containing saline solution. The midline fascia was approximated with #2 Vicryl stitch. The subcutaneous tissue with 2 layers of 3-0 and 4-0 Vicryl stitch and the skin with ben. Prior to closure, bilateral transversus plane blocks were placed, and the patient was taken to the recovery room in satisfactory condition. Physician clinical nursing assistant, Martine Herrera, played an essential role in assisting in this case, helping to position the patient, retract structures as needed, as well as suturing and cutting sutures when indicated. Her presence improved the patient's safety and decreased the operative time. Cornel Dyer MD Job #: [id number]
[2021-05-14] MEDS: Tamsulosin 0.4 MG Cap.ER PO SCH (21:55)
[2021-05-15] MEDS: Acetaminophen 500 MG Tab PO SCH (03:54)
[2021-05-15] MEDS: oxyCODONE 5 MG Tab PO PRN ×2 (03:57→08:14)
[2021-05-15] MEDS: ADVAIR DISKUS 250/50 INHALER PO SCH (07:18)
[2021-05-15] MEDS: Albuterol/Ipratropium 3.0-0.5 MG/3 ML Neb Soln INH SCH (07:18)
[2021-05-15] MEDS: Lisinopril 10 MG Tab PO SCH (08:15)
[2021-05-15] MEDS: Vitamin A 10,000 Unit Cap PO SCH (08:15)
[2021-05-15] MEDS: Docusate Sodium 100 MG Cap PO SCH (08:15)
[2021-05-15] MEDS: Celecoxib 200 MG Cap PO SCH (08:15)
[2021-05-15] MEDS: Bisacodyl 5 MG Tab PO SCH (08:15)
[2021-05-15] MEDS: Hydrochlorothiazide 12.5 MG Cap PO SCH (08:15)
--- NOTE | 2021-05-15 08:58 | DISCH ---
ADMISSION DIAGNOSES: Recurrent incarcerated incisional hernia, status post Manuel-en-Y gastric bypass surgery, unspecified surgical malabsorption, B12 deficiency, benign essential hypertension, asthma, and sleep apnea. DISCHARGE DIAGNOSES: 1. Exploratory laparotomy with reduction of small bowel volvulus and closure of internal hernia. 2. Repair of recurrent incarcerated incisional hernia with mesh. 3. Repair of recurrent incarcerated umbilical hernia. 4. Excision of nodular peritoneal implant overlying omentum. 5. Placement of Vicryl mesh to limit postoperative adhesion between pelvic and abdominal wall and underlying viscera. POSTOPERATIVE DIAGNOSES: 1. Recurrent incarcerated incisional hernia. 2. Recurrent incarcerated umbilical hernia. 3. Focal small bowel volvulus. 4. Nodular peritoneal implant overlying surface of omentum. 5. Extensive intraabdominal adhesions. Date of procedure: 05/12/2021. Surgeon: Cornel Dyer MD. HISTORY: Jakob is a 61-year-old male presenting with recurrent incisional hernia located in the upper central abdomen. After preoperative evaluation and discussion of possible risks and possible complications, he wished to proceed with surgical procedure. HOSPITAL COURSE: Jakob had his surgery on 05/12/2021. He had no operative complications. On postoperative day 1, his pain was well managed with POSTDOCTORAL RESEARCH FELLOW. He was started on step 3 gastric bypass diet and started on Flomax. Blood pressure was low, so his lisinopril was held. On postoperative day 2, Rodrigues catheter was discontinued. He voided without difficulty and had a bowel movement. IV was saline locked. POSTDOCTORAL RESEARCH FELLOW was discontinued and he was started on oral pain medication. On postoperative day 3, he was able to be discharged to home without any complications. PHYSICAL EXAMINATION: GENERAL: Kasey is a pleasant 61-year-old male. He is alert and orientated. VITAL SIGNS: Height is 5 feet 8 inches, weight is 184 pounds. BMI is 28. TPR 96.8, 86, 16. Blood pressure 142/81. HEENT: Negative. NECK: Supple. HEART: Regular rate and rhythm. LUNGS: Clear. ABDOMEN: Aquacel dressings on. Pressure dressing over hernia site which is a rolled up Kerlix and abdominal binder is on. EXTREMITIES: Without peripheral edema. DISPOSITION: Discharged to home. CONDITION: Stable and improving. FOLLOWUP: Appointment with Martine Herrera PA-C, on 05/25/2021 at 9 a.m. HOME MEDICATIONS: Oxycodone 5 mg 1 every 4 hours p.r.n. pain, #12. He is to resume all of his home medications. DIET: Step 3 gastric bypass diet. Drink 8 to 10 glasses of water a day. ACTIVITY: No lifting greater than 10 pounds for 6 weeks. Activity: Walk at least 6 times daily. Driving: Do not drive for 1 week. Shower/bathing: May shower. Wound incision care: Keep operative site clean and dry. Wear abdominal binder for 6 weeks or longer especially if lifting things at work. Wear pressure dressing, rolled up Kerlix over hernia site. Take off Aquacel dressing in 3 days on Tuesday. Notify provider if any fever, increased pain, swelling, redness, drainage, nausea, or vomiting. SPECIAL INSTRUCTIONS: Use incentive spirometer 10 times every hour while awake. /[id number]
== END 2021-05-15 08:40 | disposition home or self-care (01) | DRG 223 ==
LOC: JP.SDS 08:24 → EDSTATUS 10:15 → JP.MS 12:30
PROVIDERS: ADMIT Surgery; ATTEND Surgery
PROC: 0DS80ZZ Reposition Small Intestine, Open Approach (ICD-10-PCS; principal; 2021-05-12)
PROC: 0WUF0JZ Supplement Abdominal Wall with Synthetic Substitute, Open Approach (ICD-10-PCS; 2021-05-12)
PROC: 3E0M05Z Introduction of Adhesion Barrier into Peritoneal Cavity, Open Approach (ICD-10-PCS; 2021-05-12)
PROC: 0WQF0ZZ Repair Abdominal Wall, Open Approach (ICD-10-PCS; 2021-05-12)
PROC: 0DBW0ZZ Excision of Peritoneum, Open Approach (ICD-10-PCS; 2021-05-12)
DX: K43.0 Incisional hernia with obstruction, without gangrene (principal); K56.2 Volvulus; K42.0 Umbilical hernia with obstruction, without gangrene; K66.8 Other specified disorders of peritoneum; K66.0 Peritoneal adhesions (postprocedural) (postinfection); K91.2 Postsurgical malabsorption, not elsewhere classified; E53.8 Deficiency of other specified B group vitamins; J45.41 Moderate persistent asthma with (acute) exacerbation; I10 Essential (primary) hypertension; G47.30 Sleep apnea, unspecified; Z87.891 Personal history of nicotine dependence; Z88.1 Allergy status to other antibiotic agents; Z91.040 Latex allergy status; Z88.8 Allergy status to other drugs, medicaments and biological substances; Z79.899 Other long term (current) drug therapy
CPT/HCPCS: 36415; 85025; 86850; 86900; 86901; 86920; 86922; 88302; 88305; 94640; 94762; A9270-GY; C1713; C1781; J0171; J0690; J1100; J1170; J2020; J2185; J2370; J2405; J2704; J2710; J2795; J3010; J3490; J7030; J7120; J7121; J7620-GY

== ENCOUNTER 2021-06-05 17:30 | Inpatient (IN) | payer BC ==
[2021-06-05] MEDS ORDERED: HYDROmorphone 0.5 MG/0.5 ML Syringe IVPUSH ONE (18:07)
--- NOTE | 2021-06-05 18:14 | EDM.PDOC ---
ED HPI GENERAL MEDICAL PROBLEM - General Chief Complaint: Abdominal Pain Stated Complaint: HERNIA SURGERY NOV 2/PAIN Time Seen by Provider: 06/05/21 18:00 Source of Information: Reports: Patient, Family History Limitations: Reports: No Limitations - History of Present Illness INITIAL COMMENTS - FREE TEXT/NARRATIVE: 61-year-old male who had an incisional hernia repair a little over 3 weeks ago is having persistent discomfort, persistent nausea, and does not feel like he is healing well. He still having significant pain. No fevers or chills, bowels are moving and despite the nausea he has no vomiting. Most of his pain is in the center and upper abdomen and is persistent. Does not feel distended. Denies dark stools or persistent diarrhea. He was seen in the [facility] emergency room a week ago and was given a muscle relaxer which did not help. Onset: Unknown/Unsure Duration: Week(s): (Symptoms have been lingering for weeks since his surgery) Location: Reports: Abdomen Associated Symptoms: Reports: Loss of Appetite, Malaise, Weakness. Denies: Fever/Chills, Shortness of Breath generalized abdominal Pain Score (Numeric/FACES): 10 - Related Data Allergies Allergy/AdvReac Type Severity Reaction Status Date / Time latex Allergy Chest Pain Verified 06/05/21 17:48 levofloxacin Allergy Other Verified 06/05/21 17:48 methotrexate Allergy Irritabilit Verified 06/05/21 17:48 y Home Meds: Home Meds Albuterol Sulfate [Proair Hfa] 1 - 2 puff IH Q4H PRN 02/25/20 [History] Calcium Citrate 200 mg PO DAILY 02/25/20 [History] Cyanocobalamin (Vitamin B-12) [Vitamin B-12] 1,000 mcg PO DAILY 02/25/20 [History] Multivitamin with Minerals [Multiple Vitamin] 1 tab PO DAILY 02/25/20 [History] Vitamin B Complex [B Complex] 1 tab PO DAILY 02/25/20 [History] lisinopriL [Lisinopril] 10 mg PO DAILY 02/25/20 [History] Celecoxib [CeleBREX] 200 mg PO BID #28 cap 02/29/20 [Rx] Albuterol Sulfate 3 ml INH Q8H PRN 05/11/21 [History] Fluticasone Propion/Salmeterol [Advair 250-50 Diskus] 1 puff IH BID 05/11/21 [History] hydroCHLOROthiazide [Hydrochlorothiazide] 12.5 mg PO DAILY 05/11/21 [History] Acetaminophen [Tylenol Extra Strength] 1,000 mg PO Q6H tablet 05/15/21 [Rx] Past Medical History Cardiovascular History: Reports: Hypertension Respiratory History: Reports: Asthma, COPD Gastrointestinal History: Reports: None Musculoskeletal History: Reports: Arthritis Endocrine/Metabolic History: Reports: Obesity/BMI 30+ Hematologic History: Reports: Iron Deficiency Dermatologic History: Reports: Psoriasis - Infectious Disease History Infectious Disease History: Reports: Chicken Pox - Past Surgical History Cardiovascular Surgical History: Reports: None Respiratory Surgical History: Reports: None GI Surgical History: Reports: Bariatric Procedure, Cholecystectomy, Colonoscopy, Hernia, Abdominal, Hernia Repair/Other Endocrine Surgical History: Reports: None Musculoskeletal Surgical History: Reports: Carpal Tunnel, Shoulder Surgery Social & Family History - Family History Family Medical History: No Pertinent Family History - Tobacco Use Tobacco Use Status *Q: Never Tobacco User - Caffeine Use Caffeine Use: Reports: Coffee - Recreational Drug Use Recreational Drug Use: No ED ROS GENERAL - Review of Systems Review Of Systems: See Below Constitutional: Reports: Malaise, Decreased Appetite. Denies: Fever, Chills HEENT: Reports: No Symptoms Respiratory: Denies: Shortness of Breath, Cough Cardiovascular: Denies: Chest Pain, Palpitations GI/Abdominal: Reports: Abdominal Pain, Decreased Appetite, Nausea. Denies: Constipation, Diarrhea, Vomiting : Reports: No Symptoms Musculoskeletal: Reports: Back Pain Skin: Reports: No Symptoms Neurological: Reports: No Symptoms ED EXAM, GENERAL - Physical Exam Exam: See Below Exam Limited By: No Limitations General Appearance: Alert, No Apparent Distress (Looks uncomfortable but not distressed) Eye Exam: Bilateral Eye: Normal Inspection (No jaundice) Respiratory/Chest: No Respiratory Distress, Lungs Clear Cardiovascular: Regular Rate, Rhythm GI/Abdominal: Normal Bowel Sounds (Very active bowel sounds), Soft (No significant guarding with palpation), Tender (He is tender across the mid and upper abdomen but no focal guarding or rebound) Extremities: Normal Inspection Neurological: Alert, Oriented Psychiatric: Normal Affect, Normal Mood Skin Exam: Warm, Dry Course - Vital Signs Last Recorded V/S: Last Vital Signs Temp 97.9 F 06/05/21 17:40 Pulse 98 06/05/21 18:55 Resp 16 06/05/21 18:55 BP 125/85 06/05/21 18:55 Pulse Ox 94 L 06/05/21 18:55 - Orders/Labs/Meds Orders: Active Orders 24 hr Category Date Time Status Iopamidol [Isovue-300 (61%)] Med 06/05/21 19:00 Active 100 ml IV . DIRECTED Sodium Chloride 0.9% [Normal Saline] 1,000 ml Med 06/05/21 18:15 Active IV ASDIRECTED Sodium Chloride 0.9% [Normal Saline] 60 ml Med 06/05/21 19:00 Active IV ASDIRECTED Isolation [COMM] Stat Oth 06/05/21 19:42 Ordered Medication Orders Diphenhydramine HCl (Diphenhydramine 25 Mg Cap) 25 mg PO Q4H PRN PRN Reason: Itching Diphenhydramine HCl (Diphenhydramine 50 Mg/Ml Sdv) 25 mg IVPUSH Q4H PRN PRN Reason: Itching Diphenhydramine HCl (Diphenhydramine 50 Mg/Ml Sdv) 50 mg IVPUSH Q4H PRN PRN Reason: Itching Fentanyl (Fentanyl 100 Mcg/2 Ml Sdv) 10 mcg IVPUSH Q1H PRN PRN Reason: Pain (mild 1-3) Fentanyl (Fentanyl 100 Mcg/2 Ml Sdv) 20 mcg IVPUSH Q1H PRN PRN Reason: Pain (moderate 4-6) Fentanyl (Fentanyl 100 Mcg/2 Ml Sdv) 30 mcg IVPUSH Q1H PRN PRN Reason: Pain (severe 7-10) Hydroxyzine HCl (Hydroxyzine Hcl 100 Mg/2 Ml Sdv) 50 mg IM Q4H PRN PRN Reason: Nausea Sodium Chloride (Normal Saline) 1,000 mls @ 500 mls/hr IV ASDIRECTED [facility] Last Admin: 06/05/21 18:17 Dose: 500 mls/hr Documented by: MONTEZ Sodium Chloride (Normal Saline) 60 mls @ 3 mls/sec IV ASDIRECTED [facility] Last Admin: 06/05/21 19:02 Dose: 3 mls/sec Documented by: ANIKET Promethazine HCl 12.5 mg/ (Sodium Chloride) 50.5 mls @ 200 mls/hr IV Q8H PRN PRN Reason: Nausea/Vomiting Promethazine HCl 25 mg/ Sodium (Chloride) 51 mls @ 200 mls/hr IV Q8H PRN PRN Reason: Nausea/Vomiting Sodium Chloride (Normal Saline) 1,000 mls @ 125 mls/hr IV ASDIRECTED [facility] Piperacillin Sod/Tazobactam (Sod 3.375 gm/ Sodium Chloride) 50 mls @ 100 mls/hr IV Q6H [facility] Last Admin: 06/05/21 22:05 Dose: 100 mls/hr Documented by: Admin: 06/05/21 21:17 Dose: Not Given Documented by: MARYANNE Iopamidol (Iopamidol 612 Mg/Ml 100 Ml Bottle) 100 ml IV . DIRECTED [facility] Last Admin: 06/05/21 19:02 Dose: 100 ml Documented by: ANIKET Morphine Sulfate (Morphine 4 Mg/Ml Syringe) 1 mg IVPUSH Q1H PRN PRN Reason: Pain (mild 1-3) Morphine Sulfate (Morphine 4 Mg/Ml Syringe) 2 mg IVPUSH Q1H PRN PRN Reason: Pain (moderate 4-6) Morphine Sulfate (Morphine 4 Mg/Ml Syringe) 3 mg IVPUSH Q1H PRN PRN Reason: Pain (severe 7-10) Ondansetron HCl (Ondansetron 4 Mg/2 Ml Sdv) 4 mg IVPUSH Q8H PRN PRN Reason: Nausea/Vomiting Pantoprazole Sodium (Pantoprazole 40 Mg Vial) 40 mg IVPUSH Q24H [facility] Scopolamine (Scopolamine 1.5 Mg Transdermal Patch) 1.5 mg TRDERM Q72H PRN PRN Reason: Nausea Labs: Laboratory Tests 06/05/21 06/05/21 06/05/21 Range/Units 18:20 18:20 18:20 WBC 15.7 H (4.5-11.0) K/uL RBC 4.57 (4.30-5.90) M/uL Hgb 14.4 (12.0-15.0) g/dL Hct 42.6 (40.0-54.0) % MCV 93 (80-98) fL MCH 32 H (27-31) pg MCHC 34 (32-36) % Plt Count 556 H (150-400) K/uL Neut % (Auto) 82.6 H (36-66) % Lymph % (Auto) 5.8 L (24-44) % Frederick % (Auto) 10.8 H (2-6) % Eos % (Auto) 0.6 L (2-4) % Baso % (Auto) 0.2 (0-1) % Sodium 133 L (140-148) mmol/L Potassium 4.2 (3.6-5.2) mmol/L Chloride 93 L (100-108) mmol/L Carbon Dioxide 29 (21-32) mmol/L Anion Gap 15.2 H (5.0-14.0) mmol/L BUN 21 H D (7-18) mg/dL Creatinine 0.9 (0.8-1.3) mg/dL Est Cr Clr Drug Dosing 81.28 mL/min Estimated GFR (MDRD) > 60 (>60) Glucose 134 H (74-106) mg/dL Lactic Acid 1.5 (0.4-2.0) mmol/L Calcium 9.3 (8.5-10.1) mg/dL Total Bilirubin 0.3 (0.2-1.0) mg/dL AST 21 (15-37) U/L ALT 33 (12-78) U/L Alkaline Phosphatase 172 H D (46-116) U/L Total Protein 7.2 (6.4-8.2) g/dL Albumin 2.5 L (3.4-5.0) g/dL Globulin 4.7 H (2.3-3.5) g/dL Albumin/Globulin Ratio 0.5 L (1.2-2.2) Lipase 105 (73-393) U/L Influenza Type A RNA (NEGATIVE) RSV RNA (INAAT) (NEGATIVE) Influenza Type B RNA (NEGATIVE) SARS-CoV-2 RNA ([place]) (NEGATIVE) 06/05/21 Range/Units 19:41 WBC (4.5-11.0) K/uL RBC (4.30-5.90) M/uL Hgb (12.0-15.0) g/dL Hct (40.0-54.0) % MCV (80-98) fL MCH (27-31) pg MCHC (32-36) % Plt Count (150-400) K/uL Neut % (Auto) (36-66) % Lymph % (Auto) (24-44) % Frederick % (Auto) (2-6) % Eos % (Auto) (2-4) % Baso % (Auto) (0-1) % Sodium (140-148) mmol/L Potassium (3.6-5.2) mmol/L Chloride (100-108) mmol/L Carbon Dioxide (21-32) mmol/L Anion Gap (5.0-14.0) mmol/L BUN (7-18) mg/dL Creatinine (0.8-1.3) mg/dL Est Cr Clr Drug Dosing mL/min Estimated GFR (MDRD) (>60) Glucose (74-106) mg/dL Lactic Acid (0.4-2.0) mmol/L Calcium (8.5-10.1) mg/dL Total Bilirubin (0.2-1.0) mg/dL AST (15-37) U/L ALT (12-78) U/L Alkaline Phosphatase (46-116) U/L Total Protein (6.4-8.2) g/dL Albumin (3.4-5.0) g/dL Globulin (2.3-3.5) g/dL Albumin/Globulin Ratio (1.2-2.2) Lipase (73-393) U/L Influenza Type A RNA Negative (NEGATIVE) RSV RNA (INAAT) Negative (NEGATIVE) Influenza Type B RNA Negative (NEGATIVE) SARS-CoV-2 RNA ([place]) Negative (NEGATIVE) Meds: Medications Generic Name Dose Route Start Last Admin Trade Name Freq PRN Reason Stop Dose Admin Diphenhydramine HCl 25 mg 06/05/21 19:56 Diphenhydramine 25 Mg Cap PO Q4H PRN Itching Diphenhydramine HCl 25 mg 06/05/21 19:56 Diphenhydramine 50 Mg/Ml Sdv IVPUSH Q4H PRN Itching Diphenhydramine HCl 50 mg 06/05/21 19:56 Diphenhydramine 50 Mg/Ml Sdv IVPUSH Q4H PRN Itching Fentanyl 10 mcg 06/05/21 19:56 Fentanyl 100 Mcg/2 Ml Sdv IVPUSH Q1H PRN Pain (mild 1-3) Fentanyl 20 mcg 06/05/21 19:56 Fentanyl 100 Mcg/2 Ml Sdv IVPUSH Q1H PRN Pain (moderate 4-6) Fentanyl 30 mcg 06/05/21 19:56 Fentanyl 100 Mcg/2 Ml Sdv IVPUSH Q1H PRN Pain (severe 7-10) Hydroxyzine HCl 50 mg 06/05/21 22:26 Hydroxyzine Hcl 100 Mg/2 Ml Sdv IM Q4H PRN Nausea Sodium Chloride 1,000 mls @ 500 mls/hr 06/05/21 18:15 06/05/21 18:17 Normal Saline IV 500 mls/hr ASDIRECTED BLAKE Administration Sodium Chloride 60 mls @ 3 mls/sec 06/05/21 19:00 06/05/21 19:02 Normal Saline IV 3 mls/sec ASDIRECTED [facility] Administration Promethazine HCl 12.5 mg/ 50.5 mls @ 200 mls/hr 06/05/21 19:56 Sodium Chloride IV Q8H PRN Nausea/Vomiting Promethazine HCl 25 mg/ Sodium 51 mls @ 200 mls/hr 06/05/21 19:56 Chloride IV Q8H PRN Nausea/Vomiting Sodium Chloride 1,000 mls @ 125 mls/hr 06/05/21 20:15 Normal Saline IV ASDIRECTED [facility] Piperacillin Sod/Tazobactam 50 mls @ 100 mls/hr 06/05/21 22:00 06/05/21 22:05 Sod 3.375 gm/ Sodium Chloride IV 100 mls/hr Q6H [facility] Administration Iopamidol 100 ml 06/05/21 19:00 06/05/21 19:02 Iopamidol 612 Mg/Ml 100 Ml Bottle IV 100 ml . DIRECTED BLAKE Administration Morphine Sulfate 1 mg 06/05/21 19:56 Morphine 4 Mg/Ml Syringe IVPUSH Q1H PRN Pain (mild 1-3) Morphine Sulfate 2 mg 06/05/21 19:56 Morphine 4 Mg/Ml Syringe IVPUSH Q1H PRN Pain (moderate 4-6) Morphine Sulfate 3 mg 06/05/21 19:56 Morphine 4 Mg/Ml Syringe IVPUSH Q1H PRN Pain (severe 7-10) Ondansetron HCl 4 mg 06/05/21 19:56 Ondansetron 4 Mg/2 Ml Sdv IVPUSH Q8H PRN Nausea/Vomiting Pantoprazole Sodium 40 mg 06/06/21 09:00 Pantoprazole 40 Mg Vial IVPUSH Q24H [facility] Scopolamine 1.5 mg 06/05/21 19:56 Scopolamine 1.5 Mg Transdermal Patch TRDERM Q72H PRN Nausea Discontinued Medications Generic Name Dose Route Start Last Admin Trade Name Lorean PRN Reason Stop Dose Admin Bupivacaine HCl/Epinephrine Bitart Confirm 06/05/21 20:56 Bupivacaine 0.5%/Epinephrine 1:200,000 50 Ml Mdv Administered 06/05/21 20:57 Dose 50 ml .ROUTE .STK-MED ONE Dexamethasone Confirm 06/05/21 21:03 Dexamethasone 4 Mg/Ml Sdv Administered 06/05/21 21:04 Dose 4 mg .ROUTE .STK-MED ONE Fentanyl Confirm 06/05/21 21:00 Fentanyl 250 Mcg/5 Ml Sdv Administered 06/05/21 21:01 Dose 250 mcg .ROUTE .STK-MED ONE Glycopyrrolate Confirm 06/05/21 21:03 Glycopyrrolate 0.2 Mg/Ml 5 Ml Mdv Administered 06/05/21 21:04 Dose 1 mg .ROUTE .STK-MED ONE Hydromorphone HCl 0.5 mg 06/05/21 18:07 06/05/21 18:17 Hydromorphone 0.5 Mg/0.5 Ml Syringe IVPUSH 06/05/21 18:08 0.5 mg ONETIME ONE Administration Lactated Ringer's Confirm 06/05/21 21:55 Ringers, Lactated Administered 06/05/21 21:56 Dose 1,000 mls @ as directed .ROUTE .STK-MED ONE Sodium Chloride Confirm 06/05/21 21:57 Normal Saline Administered 06/05/21 21:58 Dose 10 mls @ as directed .ROUTE .STK-MED ONE Meropenem Confirm 06/05/21 21:57 Meropenem 500 Mg Sdv Administered 06/05/21 21:58 Dose 500 mg .ROUTE .STK-MED ONE Neostigmine Methylsulfate Confirm 06/05/21 21:03 Neostigmine Methylsulfate 1 Mg/Ml 5 Ml Syringe Administered 06/05/21 21:04 Dose 5 mg .ROUTE .STK-MED ONE Ondansetron HCl Confirm 06/05/21 21:03 Ondansetron 4 Mg/2 Ml Sdv Administered 06/05/21 21:04 Dose 4 mg .ROUTE .STK-MED ONE Pantoprazole Sodium 40 mg 06/05/21 19:24 06/05/21 20:12 Pantoprazole 40 Mg Vial IVPUSH 06/05/21 19:25 40 mg ONETIME ONE Administration Propofol Confirm 06/05/21 21:03 Propofol 200 Mg/20 Ml Sdv Administered 06/05/21 21:04 Dose 200 mg .ROUTE .STK-MED ONE Rocuronium [place] Confirm 06/05/21 21:03 Rocuronium 50 Mg/5 Ml Vial Administered 06/05/21 21:04 Dose 50 mg .ROUTE .STK-MED ONE Succinylcholine Chloride Confirm 06/05/21 21:03 Succinylcholine 200 Mg/10 Ml Mdv Administered 06/05/21 21:04 Dose 200 mg .ROUTE .STK-MED ONE - Re-Assessments/Exams Free Text/Narrative Re-Assessment/Exam: 06/05/21 18:14 An IV was started, patient will be given 0.5 mg of IV Dilaudid. CBC, CMP, lipase and lactic acid were drawn, normal saline started at 500 cc an hour and anticipate a CT of the abdomen. 06/05/21 19:25 IMPRESSION: 1. Findings suggestive of perforated duodenal ulcer. 2. Changes of abdominal hernia repair, without complication. White count was elevated, hemoglobin normal and the rest of his labs nonspecific. Lactic acid was normal. Above findings on CT scan were discussed with surgery. 06/05/21 19:33 Patient was given 40 mg of IV Protonix and the case was discussed with Dr. Mitchell. He kindly accepted the patient for admission. Departure - Departure Time of Disposition: 20:15 Disposition: Admitted As Inpatient 64 Clinical Impression: Duodenal ulcer with perforation Abdominal pain Qualifiers: Abdominal location: upper abdomen, unspecified Qualified Code(s): R10.10 - Upper abdominal pain, unspecified - Discharge Information Sepsis Event Note (ED) - Evaluation Sepsis Screening Result: No Definite Risk - Focused Exam Vital Signs: Vital Signs Temp Pulse Resp BP Pulse Ox 06/05/21 18:55 98 16 125/85 94 L 06/05/21 17:40 97.9 F 120 H 16 137/85 96 - My Orders Last 24 Hours: My Active Orders 06/05/21 18:15 Sodium Chloride 0.9% [Normal Saline] 1,000 ml IV ASDIRECTED 06/05/21 19:00 Iopamidol [Isovue-300 (61%)] 100 ml IV . DIRECTED Sodium Chloride 0.9% [Normal Saline] 60 ml IV ASDIRECTED 06/05/21 19:42 Isolation [COMM] Stat - Assessment/Plan Last 24 Hours: My Active Orders 06/05/21 18:15 Sodium Chloride 0.9% [Normal Saline] 1,000 ml IV ASDIRECTED 06/05/21 19:00 Iopamidol [Isovue-300 (61%)] 100 ml IV . DIRECTED Sodium Chloride 0.9% [Normal Saline] 60 ml IV ASDIRECTED 06/05/21 19:42 Isolation [COMM] Stat
[2021-06-05] MEDS ORDERED: Sodium Chloride 0.9% 1,000 ML IV SCH (18:15)
[2021-06-05] MEDS ORDERED: Iopamidol 612 MG/ML 100 ML Bottle IV SCH (19:00)
[2021-06-05] MEDS ORDERED: Sodium Chloride 0.9% 60 ML IV SCH (19:00)
[2021-06-05] MEDS ORDERED: Ropivacaine 40 ML, dexAMETHasone 8 MG, EPINEPHrine 0.4 MG, Sodium Chloride 0.9% 37.6 ML NERVRT SCH ×4 (19:00)
[2021-06-05] MEDS ORDERED: Pantoprazole 40 MG Vial IVPUSH ONE (19:24)
--- NOTE | 2021-06-05 19:25 | CRLCT ---
For Patients: As a result of the Century Cures Act, medical imaging exams and procedure reports are released immediately into your electronic medical record. You may view this report before your referring provider. If you have questions, please contact your health care provider. INDICATION: Postop pain, hernia repair 05/12/2021. TECHNIQUE: CT abdomen and pelvis acquired with 100 cc Omnipaque 300 IV contrast. COMPARISON: None. FINDINGS: Lower chest: Patchy nodular densities in the right lower and middle lobes are nonspecific and could be related to atypical infection or aspiration. Liver: Unremarkable. Normal in size and attenuation. No suspicious masses. Gallbladder and bile ducts: Surgically absent. Normal caliber bile ducts. Pancreas: Unremarkable. No mass or inflammation. Spleen: Unremarkable. Small splenule. Adrenal glands: Unremarkable. No nodules. Kidneys: Unremarkable. No suspicious masses, stones, or hydronephrosis. GI tract: Surgical changes of Manuel-en-Y gastric bypass. The duodenum shows extensive mucosal thickening, with adjacent stranding along the 1st and 2nd portions. A focus of gas extends beyond the muscularis along the right lateral margin (2/63), concerning for contained perforation. Normal appendix. Vasculature: Unremarkable. Mesenteric arteries are patent. Lymph nodes: No lymphadenopathy. Omentum/Peritoneum/Abdominal Wall: Metallic clips along the anterior abdominal wall are compatible with hernia repair. No complications. Pelvis: Unremarkable. Bones: Unremarkable for age. IMPRESSION: 1. Findings suggestive of perforated duodenal ulcer. 2. Changes of abdominal hernia repair, without complication. Findings were discussed with Dr. Long on 06/05/2021 at 7:20 p.m. Please note that all CT scans at this facility use dose modulation, iterative reconstruction, and/or weight-based dosing when appropriate to reduce radiation dose to as low as reasonably achievable. Dictated by Trev Lilly MD @ 06/05/2021 7:24:52 PM (Electronically Signed)
[2021-06-05] MEDS ORDERED: Promethazine 12.5 MG in Sodium Chloride 0.9% 50 ML IV PRN (19:56)
[2021-06-05] MEDS ORDERED: Morphine 4 MG/ML Syringe IVPUSH PRN (19:56)
[2021-06-05] MEDS ORDERED: diphenhydrAMINE 50 MG/ML SDV IVPUSH PRN ×2 (19:56)
[2021-06-05] MEDS ORDERED: diphenhydrAMINE 25 MG Cap PO PRN (19:56)
[2021-06-05] MEDS ORDERED: Scopolamine 1.5 MG Transdermal Patch TRDERM PRN (19:56)
[2021-06-05] MEDS ORDERED: Promethazine 25 MG in Sodium Chloride 0.9% 50 ML IV PRN (19:56)
[2021-06-05] MEDS ORDERED: fentaNYL 100 MCG/2 ML SDV IVPUSH PRN ×2 (19:56)
[2021-06-05] MEDS ORDERED: Ondansetron 4 MG/2 ML SDV IVPUSH PRN (19:56)
[2021-06-05 20:25] LABS: CORONAVIRUS COVID-19 NAA NEGATIVE (NEGATIVE)
[2021-06-05] MEDS ORDERED: Bupivacaine 0.5%/EPINEPHrine 1:200,000 50 ML MDV ONE (20:56)
[2021-06-05] MEDS ORDERED: fentaNYL 250 MCG/5 ML SDV ONE (21:00)
[2021-06-05] MEDS ORDERED: Glycopyrrolate 0.2 MG/ML 5 ML MDV ONE (21:03)
[2021-06-05] MEDS ORDERED: Succinylcholine 200 MG/10 ML MDV ONE (21:03)
[2021-06-05] MEDS ORDERED: Dexamethasone 4 MG/ML SDV ONE (21:03)
[2021-06-05] MEDS ORDERED: Ondansetron 4 MG/2 ML SDV ONE (21:03)
[2021-06-05] MEDS ORDERED: Propofol 200 MG/20 ML SDV ONE (21:03)
[2021-06-05] MEDS ORDERED: Rocuronium 50 MG/5 ML Vial ONE (21:03)
[2021-06-05] MEDS ORDERED: Neostigmine Methylsulfate 1 MG/ML 5 ML Syringe ONE (21:03)
[2021-06-05] MEDS: Piperacillin/Tazobactam 3.375 GM in Sodium Chloride 0.9% 50 ML IV SCH ×2 (21:17→22:05)
[2021-06-05] MEDS ORDERED: Lactated Ringers 1,000 ML ONE (21:55)
[2021-06-05] MEDS ORDERED: Sodium Chloride 0.9% 10 ML ONE (21:57)
[2021-06-05] MEDS ORDERED: Meropenem 500 MG SDV ONE (21:57)
[2021-06-05] MEDS ORDERED: hydrOXYzine HCL 100 MG/2 ML SDV IM PRN (22:26)
[2021-06-05] MEDS ORDERED: Albuterol/Ipratropium 3.0-0.5 MG/3 ML Neb Soln NEB PRN (22:36)
[2021-06-05] MEDS ORDERED: Labetalol 20 MG/4 ML Syringe ONE (22:49)
[2021-06-05] MEDS: Morphine 4 MG/ML Syringe IVPUSH PRN (23:36)
[2021-06-06] MEDS: Morphine 4 MG/ML Syringe IVPUSH PRN ×9 (00:44→21:52)
[2021-06-06] MEDS ORDERED: Sodium Chloride 0.9% 250 ML IV SCH (00:45)
[2021-06-06] MEDS: Sodium Chloride 0.9% 1,000 ML IV SCH ×3 (03:24→23:22)
[2021-06-06] MEDS: Piperacillin/Tazobactam 3.375 GM in Sodium Chloride 0.9% 50 ML IV SCH (04:05)
[2021-06-06] MEDS: fentaNYL 100 MCG/2 ML SDV IVPUSH PRN ×2 (07:22→09:56)
[2021-06-06] MEDS: Enoxaparin 40 MG/0.4 ML Syringe SUBCUT SCH (10:02)
[2021-06-06] MEDS: Pantoprazole 40 MG Vial IVPUSH SCH (10:03)
[2021-06-06] MEDS: Piperacillin/Tazobactam/Dext 3.375 GM in Premix Bag 1 BAG IV SCH ×3 (10:15→21:54)
[2021-06-06] MEDS ORDERED: Non-Formulary Medication 1 Each INH SCH (11:00)
--- NOTE | 2021-06-06 11:22 | CRLCR ---
For Patients: As a result of the Century Cures Act, medical imaging exams and procedure reports are released immediately into your electronic medical record. You may view this report before your referring provider. If you have questions, please contact your health care provider. INDICATION: Postoperative TECHNIQUE: Chest 2 views. COMPARISON: None FINDINGS: The heart size and central vascular pattern are within the normal range. The lungs are clear. No pleural effusion or pneumothorax is evident. A small amount of free intraperitoneal air is noted beneath the left hemidiaphragm with a surgical drain in the upper abdomen. Surgical skin ben overlie the ventral upper abdomen. IMPRESSION: 1. No acute cardiopulmonary disease is evident. 2. Surgical changes in the upper abdomen with a small amount of free air beneath the left hemidiaphragm. Dictated by Rashaad Castillo MD @ 06/06/2021 11:22:11 AM (Electronically Signed)
--- NOTE | 2021-06-06 11:35 | CONS ---
DATE OF SERVICE: 06/05/2021 REFERRING PHYSICIAN: Denver Garza MD CONSULTING PHYSICIAN: Rodrigo Mitchell MD REASON FOR CONSULTATION: Abdominal pain. HISTORY OF PRESENT ILLNESS: A 61-year-old male who had incisional hernia repair by another physician approximately 3 weeks ago, but still has ongoing nausea and abdominal discomfort. The pain is in right upper abdomen and is constant. The patient history of Manuel- en-Y. He has been seen in the emergency room in [place] and [place] along with clinic visits. PAST MEDICAL HISTORY: Manuel-en-Y as above, hypertension, asthma, COPD, obesity, cholecystectomy, hernia repair, carpal tunnel, and shoulder surgery. SOCIAL HISTORY: He is not a smoker. FAMILY HISTORY: Noncontributory. REVIEW OF SYSTEMS: GENERAL: The patient feels tired. HEENT: No symptoms. RESPIRATORY: He has reported he is vaccinated. CARDIOVASCULAR: No chest pain. GI: As above. GENITOURINARY: No dysuria. MUSCULOSKELETAL: No symptoms. The remainder of review of systems is negative. PHYSICAL EXAMINATION: GENERAL: The patient is appropriate for condition. VITAL SIGNS: Stable. HEENT: Pupils are equal. NECK: Supple. LUNGS: Clear. CARDIOVASCULAR: Regular rhythm and rate. ABDOMEN: Mild pain to palpation in right upper quadrant. No rebound. No guarding. There is a midline incision with Steri-Strips noted. IMAGING: I did review a CT scan which shows a duodenal ulcer. ASSESSMENT AND PLAN: To the operating room for duodenal ulcer repair and exploratory laparotomy. The patient has had quite an extensive recent surgery with significant noted adhesions, therefore laparoscopy would not be currently indicated with this procedure. The patient understands these risks and wishes to proceed. Risks including, but not limited to infection, bleeding, injury to abdominal structures, sepsis, requirement for resection of the duodenum and then remnant stomach. The role of an omental patch and other risks were explained to the patient along with the possibility of removing the mesh, mesh infection, and other risks not listed here. The patient understands these risks and wishes to proceed. Rodrigo Mitchell MD /[id number]
[2021-06-06] MEDS: ADVAIR 250/50 INHALER (PTOM) INH SCH ×2 (12:28→20:48)
[2021-06-07] MEDS: Morphine 4 MG/ML Syringe IVPUSH PRN ×7 (00:58→19:32)
[2021-06-07] MEDS: Piperacillin/Tazobactam/Dext 3.375 GM in Premix Bag 1 BAG IV SCH ×3 (03:25→16:07)
[2021-06-07] MEDS: ADVAIR 250/50 INHALER (PTOM) INH SCH (07:03)
[2021-06-07] MEDS: Sodium Chloride 0.9% 1,000 ML IV SCH ×2 (07:44→19:08)
[2021-06-07] MEDS: Enoxaparin 40 MG/0.4 ML Syringe SUBCUT SCH (10:13)
[2021-06-07] MEDS: Hydrochlorothiazide 12.5 MG Cap PO SCH (10:14)
[2021-06-07] MEDS: Pantoprazole 40 MG Vial IVPUSH SCH (10:14)
--- NOTE | 2021-06-07 11:05 | OR ---
DATE OF PROCEDURE: 06/06/2021 SURGEON: Rodrigo Mitchell MD PROCEDURES: 1. Exploratory laparotomy. 2. Omental patching of duodenal ulcer. 3. Abdominal irrigation with washout with meropenem. 4. Cultures of abdominal fluid. 5. Reopening of recent laparotomy. 6. Open repair of incisional hernia with mesh. COMPLICATIONS: None. PADDED BOX SEWER: None. PREOPERATIVE DIAGNOSIS: Duodenal ulcer. POSTOPERATIVE DIAGNOSIS: Duodenal ulcer. RISKS: Risks, benefits, alternatives, and limitations including, but not limited to, infection, bleeding, injury to abdominal structures, requirement for reoperation, sepsis, requirement for additional surgeries, and the possibility that the mesh if left intact would become infected requiring a second surgery for removal. The patient understands all these risks and wishes to proceed. DESCRIPTION OF PROCEDURE: The patient was placed in supine position. Previous exploratory laparotomy incision was opened. This was carried down to the mesh. The mesh was opened in the midline of the mesh itself. This allowed access to the abdomen. Vicryl mesh was also noted and was partially removed due to its partial degradation, therefore removing additional mesh could inadvertently cause bowel injury. Therefore, the remainder of this acute bowel was left impacted. Attention was turned to the right upper quadrant. The transverse/ascending colon was mobilized out of the way and the area of duodenal ulcer was identified. There was gross spillage. There was no peritonitis. This area of ulceration appeared to be healing, was adhered to the liver. The omental patch was then performed by suturing omentum into this. The defect itself was millimeters in size and did not appear to be actively exuding a large amount of fluid nor was there a large fluid mounted. After this repair, Tisseel was also placed on the omental area. The abdomen was irrigated with 2 L of irrigation including meropenem containing solution. A 10 flat Kj-Blackburn drain was placed directly over the area of concern and also a second Kj-Blackburn drain was placed right behind the liver on the right side. At this point, the decision to leave the mesh was chosen. This was because there did not appear to be active gross infection. The mesh repair which was performed by Dr. Dyer was per his operative report quite complicated, and the patient would have a significant morbidity and possible mortality if he required a second reoperation, and the mesh did not appear to be infected at this time and may in fact not be. Therefore, the mesh was closed in the middle. Essentially, the 2 panels that were in the midline were sutured together with 2-0 Prolene in a running fashion. Additional #1 blunt Vicryl was used to overlay the mesh and a third drain was also placed between the mesh and the remnant subcutaneous tissues as this will be essential for infection, injury, any potential seroma formation. The skin was closed with ben. The patient tolerated the procedure well. Rodrigo Mitchell MD /[id number]
--- NOTE | 2021-06-07 11:20 | PN ---
DATE OF SERVICE: 06/06/2021 SUBJECTIVE: The patient doing well today. Pain is well controlled. No nausea, vomiting, shortness of breath, or chest pain. OBJECTIVE: VITAL SIGNS: Stable. He is afebrile. CARDIOVASCULAR: Regular rhythm and rate. RESPIRATORY: Lungs clear to auscultation bilaterally. Incision and dressing intact. LABORATORY RESULTS: Show hemoglobin is 12.3. Creatinine is also normal. ASSESSMENT: Status post duodenal ulcer repair. PLAN: We will discontinue his Rodrigues. We will continue his IV fluids at this time as he is still dry. We will also work with incentive aggressive spirometry. Respiratory Therapy will see today. Plan is to keep him nil per os tonight and possibly tomorrow and then start feeding at that point. Rodrigo Mitchell MD /[id number]
--- NOTE | 2021-06-07 11:32 | PN ---
DATE OF SERVICE: 06/07/2021 SUBJECTIVE: The patient continues to improve. The pain is stable. No nausea, vomiting, shortness of breath, or chest pain. OBJECTIVE: VITAL SIGNS: Stable. CARDIOVASCULAR: Regular rhythm and rate. RESPIRATORY: Lungs clear to auscultation bilaterally. EXTREMITIES: Dressings intact. ASSESSMENT: Status post duodenal ulcer. PLAN: We will start him on a clear liquid diet today and see how he does with this. In addition, will remove his dressing in the shower and he can shower, soap and water can get on the wound. The patient does have pneumonia, however, this was noted preoperatively and the mucus cultures from his ET tube showed E. coli. Although this was not a postoperative pneumonia, he seems to be responding well to this. Rodrigo Mitchell MD /[id number]
[2021-06-08] MEDS: Morphine 4 MG/ML Syringe IVPUSH PRN ×3 (00:01→07:56)
[2021-06-08] MEDS: Piperacillin/Tazobactam/Dext 3.375 GM in Premix Bag 1 BAG IV SCH ×5 (00:03→21:49)
[2021-06-08] MEDS: ADVAIR 250/50 INHALER (PTOM) INH SCH ×3 (00:05→20:28)
[2021-06-08] MEDS: Sodium Chloride 0.9% 1,000 ML IV SCH (03:41)
--- NOTE | 2021-06-08 08:59 | PN ---
DATE OF SERVICE: 06/08/2021 SUBJECTIVE: The patient is doing better and tolerating clear liquid diet. No nausea, vomiting, shortness of breath, or chest pain. OBJECTIVE: VITAL SIGNS: Stable. He is afebrile. CARDIOVASCULAR: Regular rhythm and rate. RESPIRATORY: Lungs clear to auscultation bilaterally. SKIN: Incision healing well. ASSESSMENT AND PLAN: 1. Pneumonia. Continues to improve. 2. Postoperative pain. Also continuing to improve. We will switch to p.o. pain medication. 3. Ulcer. Also continues to improve. Rodrigo Mitchell MD /[id number]
[2021-06-08] MEDS: Pantoprazole 40 MG Vial IVPUSH SCH (09:05)
[2021-06-08] MEDS: Enoxaparin 40 MG/0.4 ML Syringe SUBCUT SCH (09:05)
[2021-06-08] MEDS: Hydrochlorothiazide 12.5 MG Cap PO SCH (09:05)
[2021-06-08] MEDS ORDERED: Albuterol 8 GM Inhaler INH PRN (09:47)
[2021-06-08] MEDS ORDERED: Hydrochlorothiazide 12.5 MG Cap PO SCH (10:00)
[2021-06-08] MEDS: Acetaminophen/HYDROcodone 325-5 MG Tab PO PRN ×3 (10:26→22:34)
[2021-06-08] MEDS: Lisinopril 10 MG Tab PO SCH (10:32)
[2021-06-08] MEDS: Celecoxib 200 MG Cap PO SCH ×2 (10:32→20:28)
[2021-06-08] MEDS: Potassium Chloride 20 MEQ, Lidocaine 1% 2 ML in Sodium Chloride 0.9% 100 ML IV SCH ×3 (12:34→18:02)
[2021-06-08] MEDS ORDERED: Non-Formulary Medication 1 Each (Fluticasone Propion/Salmeterol [Advair 250-50 Diskus] 1 E IH SCH (21:00)
[2021-06-09] MEDS: Piperacillin/Tazobactam/Dext 3.375 GM in Premix Bag 1 BAG IV SCH ×2 (03:57→09:41)
[2021-06-09] MEDS: Acetaminophen/HYDROcodone 325-5 MG Tab PO PRN ×2 (07:12→13:24)
[2021-06-09] MEDS: ADVAIR 250/50 INHALER (PTOM) INH SCH (07:13)
[2021-06-09] MEDS ORDERED: Pantoprazole 40 MG Tab.CR PO SCH (07:30)
[2021-06-09] MEDS: Enoxaparin 40 MG/0.4 ML Syringe SUBCUT SCH (08:19)
[2021-06-09] MEDS: Hydrochlorothiazide 12.5 MG Cap PO SCH (08:20)
[2021-06-09] MEDS: Celecoxib 200 MG Cap PO SCH (08:20)
[2021-06-09] MEDS: Lisinopril 10 MG Tab PO SCH (08:20)
--- NOTE | 2021-06-09 09:15 | PN ---
DATE OF SERVICE: 06/09/2021 SUBJECTIVE: The patient continues to do well. His pain is well controlled. No nausea, vomiting, shortness of breath or chest pain. He is tolerating diet, having bowel movements. OBJECTIVE: VITAL SIGNS: Stable. CARDIOVASCULAR: Regular rhythm and rate. RESPIRATORY: Lungs clear to auscultation bilaterally. ABDOMEN: Incision healing well. ASSESSMENT: Status post duodenal ulcer. PLAN: The patient will be discharged in the next 24 to 48 hours once we can arrange outpatient IV antibiotics. In addition, I will continue his Protonix. Rodrigo Mitchell MD /[id number]
== END 2021-06-09 13:30 | disposition home or self-care (01) | DRG 223 ==
LOC: JP.ED 17:30 → JP.MS 19:42
PROVIDERS: ADMIT Surgery; ATTEND Surgery
PROC: 0DU907Z Supplement Duodenum with Autologous Tissue Substitute, Open Approach (ICD-10-PCS; principal; 2021-06-06)
PROC: 0WUF0JZ Supplement Abdominal Wall with Synthetic Substitute, Open Approach (ICD-10-PCS; 2021-06-06)
DX: K26.5 Chronic or unspecified duodenal ulcer with perforation (principal); J18.9 Pneumonia, unspecified organism; I10 Essential (primary) hypertension; J44.9 Chronic obstructive pulmonary disease, unspecified; J44.0 Chronic obstructive pulmonary disease with (acute) lower respiratory infection; M19.90 Unspecified osteoarthritis, unspecified site; E66.9 Obesity, unspecified; G89.29 Other chronic pain; E61.1 Iron deficiency; L40.9 Psoriasis, unspecified; Z20.822 Contact with and (suspected) exposure to COVID-19; Z98.84 Bariatric surgery status; Z90.49 Acquired absence of other specified parts of digestive tract; Z88.8 Allergy status to other drugs, medicaments and biological substances; Z79.899 Other long term (current) drug therapy; Z98.890 Other specified postprocedural states; Z91.040 Latex allergy status; Z88.1 Allergy status to other antibiotic agents; Z68.27 Body mass index [BMI] 27.0-27.9, adult
CPT/HCPCS: 0241U; 36415; 71046; 74177; 80053; 83605; 83690; 85025; 87070; 87075; 87077; 87186; 87205; 90686; 94640; 96365; 99285-25; A9270-GY; C9113; G0008; J0171; J0330; J1100; J1170; J1650; J2185; J2270; J2405; J2543; J2704; J2710; J2795; J3010; J3480; J3490; J7030; J7120; Q9967

== ENCOUNTER 2022-05-02 23:09 | Inpatient (IN) | payer BC ==
[2022-05-02] MEDS ORDERED: Acetaminophen 325 MG Tab PO PRN (23:57)
[2022-05-02] MEDS ORDERED: Ondansetron 4 MG/2 ML SDV IV PRN (23:57)
[2022-05-02] MEDS ORDERED: Ondansetron 4 MG Tab.DIS PO PRN (23:57)
[2022-05-02] MEDS ORDERED: Albuterol 0.083% 2.5 MG/3 ML Neb Soln NEB PRN (23:57)
[2022-05-02] MEDS ORDERED: Sodium Chloride 0.9% 1,000 ML IV SCH (23:57)
[2022-05-02] MEDS ORDERED: Magnesium Hydroxide 400 MG/5 ML Susp 30 ML Cup PO PRN (23:57)
[2022-05-02] MEDS ORDERED: Melatonin 3 MG Tab PO PRN (23:57)
[2022-05-03] MEDS: HYDROmorphone 1 MG/ML Syringe IVPUSH PRN ×4 (00:11→08:38)
[2022-05-03] MEDS: Pantoprazole 40 MG Vial IV SCH ×2 (00:15→20:18)
[2022-05-03] MEDS ORDERED: Albuterol 0.083% 2.5 MG/3 ML Neb Soln INH PRN (03:09)
[2022-05-03] MEDS ORDERED: Albuterol/Ipratropium 3.0-0.5 MG/3 ML Neb Soln NEB SCH (06:00)
[2022-05-03] MEDS: Formoterol/Mometasone 200-5 MCG 8.8 GM Inhaler IH SCH ×2 (07:11→20:17)
[2022-05-03] MEDS ORDERED: Lactated Ringers 1,000 ML IV SCH (08:30)
[2022-05-03] MEDS: Albuterol/Ipratropium 3.0-0.5 MG/3 ML Neb Soln NEB SCH ×4 (08:33→20:18)
[2022-05-03] MEDS ORDERED: Glycopyrrolate 0.2 MG/ML 5 ML MDV ONE (08:37)
[2022-05-03] MEDS ORDERED: Succinylcholine 200 MG/10 ML MDV ONE (08:37)
[2022-05-03] MEDS ORDERED: Propofol 200 MG/20 ML SDV ONE (08:37)
[2022-05-03] MEDS ORDERED: Dexamethasone 4 MG/ML SDV ONE (08:37)
[2022-05-03] MEDS ORDERED: Rocuronium 50 MG/5 ML Vial ONE ×2 (08:37→12:11)
[2022-05-03] MEDS ORDERED: Ondansetron 4 MG/2 ML SDV ONE (08:37)
[2022-05-03] MEDS ORDERED: fentaNYL 250 MCG/5 ML SDV ONE (08:37)
[2022-05-03] MEDS ORDERED: Neostigmine Methylsulfate 1 MG/ML 5 ML Syringe ONE (08:37)
[2022-05-03] MEDS: Hydrochlorothiazide 12.5 MG Cap PO SCH (08:41)
[2022-05-03] MEDS: amLODIPine 5 MG Tab PO SCH (08:42)
[2022-05-03] MEDS ORDERED: Vitamin B Complex Tab PO SCH (09:00)
[2022-05-03] MEDS ORDERED: Multivitamins with Iron Tab.Chew PO SCH (09:00)
[2022-05-03] MEDS ORDERED: Cyanocobalamin (Vitamin B12) 1,000 MCG Tab PO SCH (09:00)
[2022-05-03] MEDS ORDERED: Meropenem 500 MG SDV ONE ×2 (10:30→12:05)
[2022-05-03] MEDS ORDERED: Bupivacaine 0.5%/EPINEPHrine 1:200,000 50 ML MDV ONE (10:30)
[2022-05-03] MEDS ORDERED: Ketamine 500 MG/5 ML MDV IV SCH (11:00)
[2022-05-03] MEDS ORDERED: Ketamine 20 MG in Sodium Chloride 0.9% 19.8 ML IV SCH (11:00)
[2022-05-03] MEDS ORDERED: Meropenem 500 MG in Sodium Chloride 0.9% 50 ML IV ONE (11:00)
[2022-05-03] MEDS ORDERED: Naloxone 0.4 MG/ML SDV IVPUSH PRN (11:38)
[2022-05-03] MEDS ORDERED: diphenhydrAMINE 25 MG Cap PO PRN (11:38)
[2022-05-03] MEDS ORDERED: Ondansetron 4 MG/2 ML SDV IVPUSH PRN ×2 (11:38→15:00)
[2022-05-03] MEDS ORDERED: diphenhydrAMINE 50 MG/ML SDV IVPUSH PRN ×2 (11:38→15:00)
[2022-05-03] MEDS ORDERED: Naloxone 0.4 MG/ML SDV IV PRN (12:00)
[2022-05-03] MEDS ORDERED: Linezolid 600 MG/300 ML Premix Bag IRR ONE (12:03)
[2022-05-03] MEDS ORDERED: Sodium Chloride 0.9% 10 ML ONE (12:05)
[2022-05-03] MEDS ORDERED: Lactated Ringers 1,000 ML ONE (12:18)
[2022-05-03] MEDS: Bupivacaine 0.5% 30 ML SDV ONE ×2 (12:40→13:01)
[2022-05-03] MEDS: Lidocaine 1% with EPINEPHrine 1:100,000 50 ML MDV ONE ×2 (12:40→13:01)
[2022-05-03] MEDS ORDERED: fentaNYL 100 MCG/2 ML SDV ONE (13:06)
[2022-05-03] MEDS: HYDROmorphone/Normal Saline 6 MG/30 ML PCA Vial IV PRN (13:09)
[2022-05-03] MEDS ORDERED: Sugammadex Sodium 200 MG/2 ML VIAL ONE (13:26)
[2022-05-03] MEDS ORDERED: Cyclobenzaprine 10 MG Tab PO PRN (14:12)
[2022-05-03] MEDS: Dextrose 5%-Lactated Ringers 1,000 ML IV SCH ×2 (14:39→23:12)
[2022-05-03] MEDS ORDERED: Acetaminophen 500 MG Tab PO PRN (15:00)
[2022-05-03] MEDS ORDERED: Metoclopramide 10 MG/2 ML SDV IVPUSH PRN (15:00)
[2022-05-03] MEDS ORDERED: hydrOXYzine HCL 100 MG/2 ML SDV IM PRN (15:00)
[2022-05-03] MEDS ORDERED: Heparin Sodium 5,000 Units/ML Vial SUBCUT SCH (15:00)
[2022-05-03] MEDS ORDERED: Labetalol 20 MG/4 ML Syringe IVPUSH PRN (15:00)
[2022-05-03] MEDS ORDERED: Albuterol/Ipratropium 3.0-0.5 MG/3 ML Neb Soln INH PRN (15:11)
[2022-05-03] MEDS: MVI, Adult with Vitamin K 10 ML, Thiamine 200 MG, Zinc/Copper/Manganese/Selenium 1 ML i... IV SCH ×4 (16:25)
[2022-05-03] MEDS: Meropenem 500 MG in Sodium Chloride 0.9% 50 ML IV SCH ×2 (17:56→23:13)
[2022-05-03] MEDS: Acetaminophen 500 MG Tab PO SCH (18:01)
[2022-05-03] MEDS: Heparin Sodium 5,000 Units/ML Vial SUBCUT SCH (20:16)
[2022-05-03] MEDS: Montelukast 10 MG Tab PO SCH (20:18)
[2022-05-04] MEDS: Acetaminophen 500 MG Tab PO SCH ×3 (01:12→17:25)
[2022-05-04] MEDS: HYDROmorphone/Normal Saline 6 MG/30 ML PCA Vial IV PRN ×2 (03:07→19:11)
[2022-05-04] MEDS ORDERED: Iopamidol 612 MG/ML 50 ML SDV PO ONE (04:02)
[2022-05-04] MEDS: Meropenem 500 MG in Sodium Chloride 0.9% 50 ML IV SCH ×4 (05:09→23:59)
[2022-05-04 05:54] LABS: ESTIMATED GFR 95 mL/min (>60)
[2022-05-04] MEDS: Dextrose 5%-Lactated Ringers 1,000 ML IV SCH (06:37)
[2022-05-04] MEDS ORDERED: Ondansetron 4 MG Tab.DIS PO PRN (06:45)
[2022-05-04] MEDS ORDERED: Dextrose 5%-Lactated Ringers 1,000 ML IV SCH (06:45)
[2022-05-04] MEDS: Albuterol/Ipratropium 3.0-0.5 MG/3 ML Neb Soln NEB SCH ×4 (07:15→20:25)
[2022-05-04] MEDS: Formoterol/Mometasone 200-5 MCG 8.8 GM Inhaler IH SCH ×2 (07:16→20:25)
[2022-05-04] MEDS: Heparin Sodium 5,000 Units/ML Vial SUBCUT SCH ×2 (08:22→19:19)
[2022-05-04] MEDS: Celecoxib 200 MG Cap PO SCH ×2 (09:33→20:24)
[2022-05-04] MEDS: amLODIPine 5 MG Tab PO SCH (09:33)
[2022-05-04] MEDS: Hydrochlorothiazide 12.5 MG Cap PO SCH (09:33)
[2022-05-04] MEDS: Potassium Chloride 20 MEQ Tab.ER PO SCH (09:36)
[2022-05-04] MEDS: SCOPOLAMINE PATCH CHECK TOP SCH (09:37)
[2022-05-04] MEDS: MVI, Adult with Vitamin K 10 ML, Thiamine 200 MG, Zinc/Copper/Manganese/Selenium 1 ML i... IV SCH ×4 (15:26)
[2022-05-04] MEDS: Pantoprazole 40 MG Vial IV SCH (20:25)
[2022-05-04] MEDS: Montelukast 10 MG Tab PO SCH (20:26)
[2022-05-05] MEDS: Acetaminophen 500 MG Tab PO SCH ×3 (01:20→17:10)
[2022-05-05] MEDS: Meropenem 500 MG in Sodium Chloride 0.9% 50 ML IV SCH ×2 (05:55→11:03)
[2022-05-05] MEDS: Albuterol/Ipratropium 3.0-0.5 MG/3 ML Neb Soln NEB SCH ×4 (07:05→20:03)
[2022-05-05] MEDS: Formoterol/Mometasone 200-5 MCG 8.8 GM Inhaler IH SCH ×2 (07:05→20:03)
[2022-05-05] MEDS ORDERED: oxyCODONE 5 MG Tab PO PRN (07:21)
[2022-05-05] MEDS: SCOPOLAMINE PATCH CHECK TOP SCH (08:44)
[2022-05-05] MEDS: Celecoxib 200 MG Cap PO SCH ×2 (08:45→20:02)
[2022-05-05] MEDS: Hydrochlorothiazide 12.5 MG Cap PO SCH (08:45)
[2022-05-05] MEDS: amLODIPine 5 MG Tab PO SCH (08:45)
[2022-05-05] MEDS: Bisacodyl 5 MG Tab PO SCH ×2 (08:45→20:03)
[2022-05-05] MEDS: Docusate Sodium 100 MG Cap PO SCH ×2 (08:45→20:02)
[2022-05-05] MEDS: Potassium Chloride 20 MEQ Tab.ER PO SCH (08:45)
[2022-05-05] MEDS: Heparin Sodium 5,000 Units/ML Vial SUBCUT SCH ×2 (08:45→20:01)
[2022-05-05] MEDS ORDERED: Cyanocobalamin (Vitamin B12) 1,000 MCG/ML SDV IM ONE (09:00)
[2022-05-05] MEDS: Montelukast 10 MG Tab PO SCH (20:04)
[2022-05-05] MEDS ORDERED: Pantoprazole 40 MG Tab.CR PO SCH (21:00)
[2022-05-06] MEDS: Acetaminophen 500 MG Tab PO SCH (02:49)
[2022-05-06] MEDS: Formoterol/Mometasone 200-5 MCG 8.8 GM Inhaler IH SCH (07:07)
[2022-05-06] MEDS: Albuterol/Ipratropium 3.0-0.5 MG/3 ML Neb Soln NEB SCH (07:07)
[2022-05-06] MEDS: Heparin Sodium 5,000 Units/ML Vial SUBCUT SCH (08:52)
[2022-05-06] MEDS: Hydrochlorothiazide 12.5 MG Cap PO SCH (08:53)
[2022-05-06] MEDS: amLODIPine 5 MG Tab PO SCH (08:53)
[2022-05-06] MEDS: Bisacodyl 5 MG Tab PO SCH (08:53)
[2022-05-06] MEDS: Celecoxib 200 MG Cap PO SCH (08:53)
[2022-05-06] MEDS: Potassium Chloride 20 MEQ Tab.ER PO SCH (08:53)
[2022-05-06] MEDS: Docusate Sodium 100 MG Cap PO SCH (08:53)
== END 2022-05-06 09:39 | disposition home or self-care (01) | DRG 223 ==
LOC: UNDOADMIN 23:09 → JP.MS 23:09
PROVIDERS: ADMIT Internal Medicine; ATTEND Surgery
PROC: 0DBA0ZZ Excision of Jejunum, Open Approach (ICD-10-PCS; principal; 2022-05-02)
PROC: 0WPF0JZ Removal of Synthetic Substitute from Abdominal Wall, Open Approach (ICD-10-PCS; 2022-05-02)
PROC: 0DBW0ZZ Excision of Peritoneum, Open Approach (ICD-10-PCS; 2022-05-02)
PROC: 0JB80ZZ Excision of Abdomen Subcutaneous Tissue and Fascia, Open Approach (ICD-10-PCS; 2022-05-02)
PROC: 3E0M05Z Introduction of Adhesion Barrier into Peritoneal Cavity, Open Approach (ICD-10-PCS; 2022-05-02)
PROC: 0D7A0ZZ Dilation of Jejunum, Open Approach (ICD-10-PCS; 2022-05-02)
DX: K95.89 Other complications of other bariatric procedure (principal); K56.50 Intestinal adhesions [bands], unspecified as to partial versus complete obstruction; K91.2 Postsurgical malabsorption, not elsewhere classified; G47.30 Sleep apnea, unspecified; I10 Essential (primary) hypertension; D17.1 Benign lipomatous neoplasm of skin and subcutaneous tissue of trunk; M19.90 Unspecified osteoarthritis, unspecified site; E66.9 Obesity, unspecified; J44.9 Chronic obstructive pulmonary disease, unspecified; E61.1 Iron deficiency; L40.50 Arthropathic psoriasis, unspecified; Z87.891 Personal history of nicotine dependence; Z90.49 Acquired absence of other specified parts of digestive tract; Z98.84 Bariatric surgery status; Z91.040 Latex allergy status; Z88.1 Allergy status to other antibiotic agents; Z79.899 Other long term (current) drug therapy; Z68.32 Body mass index [BMI] 32.0-32.9, adult
CPT/HCPCS: 36415; 74240; 74240-26; 80048; 80053; 82728; 83735; 83880; 84100; 85025; 85027; 88304; 88305; 88307; 88342; 94640; 99222; A9270-GY; C9113; J0171; J0330; J1100; J1170; J1644; J2020; J2185; J2405; J2704; J2710; J2795; J3010; J3411; J3420; J3490; J7030; J7120; J7121; J7620; Q9967